=== PATIENT | female | born 1950 | race Caucasian/White ===

== ENCOUNTER → 2020-07-23 10:17 | Outpatient (CLI) | payer MEDICARE, SELFPAY ==
--- NOTE | ~2020-07-23 | DEXA_ITS ---
Bone Density Report Name: Audelia Dunne Age: 70 Sex: Female Ethnicity: White Date of : 1950 Indication: monitoring treatment; height loss; postmenopausal Referring Provider: MORA, STEFANO Study: Bone densitometry was performed. Exam Date: July 23, 2020 Accession number: [id number] Bone Density: Region BMD T-score Z-score Classification AP Spine (L1-L4) 1.003 -0.4 1.6 Normal Femoral Neck (Left) 0.709 -1.3 0.4 Osteopenia Total Hip (Left) 0.787 -1.3 0.1 Osteopenia Femoral Neck (Right) 0.757 -0.8 0.9 Normal Total Hip (Right) 0.770 -1.4 0.0 Osteopenia Total Hip Mean 0.779 -1.4 0.1 Osteopenia World Health Organization criteria for BMD impression classify patients as: Normal (T-score at or above -1.0), Osteopenia (T-score between -1.0 and -2.5), or Osteoporosis (T-score at or below -2.5). 10-year Fracture Risk: FRAX not reported because: Treated for osteoporosis Previous Exams: Region Exam Age BMD T-score BMD Change BMD Change Date g/cm2 vs Baseline vs Previous AP Spine(L1-L4) 07/23/2020 70 1.003 -0.4 -0.055* -0.042* 06/28/2017 67 1.045 0.0 -0.013 0.011 06/23/2015 65 1.034 -0.1 -0.024* -0.027* 05/01/2013 63 1.061 0.1 0.003 0.039* 03/13/2011 60 1.022 -0.2 -0.036* -0.036* 01/20/2008 57 1.058 0.1 Total Hip(Left) 07/23/2020 70 0.787 -1.3 -0.122* -0.069* 06/28/2017 67 0.855 -0.7 -0.053* 0.038* 06/23/2015 65 0.817 -1.0 -0.091* -0.006 05/01/2013 63 0.823 -1.0 -0.085* 0.026 03/13/2011 60 0.797 -1.2 -0.111* -0.111* 01/20/2008 57 0.909 -0.3 Total Hip(Right) 07/23/2020 70 0.770 -1.4 -0.082* -0.076* 06/28/2017 67 0.846 -0.8 -0.007 0.036* 06/23/2015 65 0.810 -1.1 -0.043* -0.021 05/01/2013 63 0.830 -0.9 -0.022 0.024 03/13/2011 60 0.807 -1.1 -0.046* -0.046* 01/20/2008 57 0.852 -0.7 *Denotes significance at 95% confidence level, LSC for AP Spine = 0.022 g/cm2, LSC for Total Hip = 0.027 g/cm2 Clinical Information Provided by Patient: Is being treated for osteoporosis Has used the following medications: HRT (i.e. estrogen/hormone therapy), Vitamin D, Calcium, mtv Patient maximum height was 66 Menopause Age: 52 No regular weight bearing exercise Drinks caffeinated ghislaine
--- NOTE | ~2020-07-23 | MM_ITS ---
EXAMINATION: MM screening garrett BI w ingrid HISTORY: Screening TECHNIQUE: Craniocaudal and mediolateral oblique 3-D tomosynthesis images were obtained and synthetic 2-D images were generated. CAD analysis was submitted and interpreted. COMPARISON: Comparison to multiple prior studies sequentially, with oldest reviewed study dated 04/04. BREAST PARENCHYMAL COMPOSITION: The breasts are heterogeneously dense, which may obscure small masses . FINDINGS: There is no evidence of suspicious mass, calcification, or architectural distortion to sugg est malignancy in either breast. There has been no suspicious interval change. IMPRESSION: 1. No mammographic evidence of malignancy. 2. Recommend routine screening mammography in one year. BI-RADS Category 1: Negative Reviewed, dictated and finalized at location A.
== END ==
PROVIDERS: PCP Internal Medicine; Visit Provider Nurse Practitioner
DX: Z12.31 Encounter for screening mammogram for malignant neoplasm of breast (principal); Z78.0 Asymptomatic menopausal state; M85.88 Other specified disorders of bone density and structure, other site
CPT/HCPCS: 77063; 77067; 77080

== ENCOUNTER → 2021-07-27 10:04 | Outpatient (CLI) | payer MEDICARE, SELFPAY ==
--- NOTE | ~2021-07-27 | MM_ITS ---
EXAMINATION: MM screening garrett BI w ingrid HISTORY: Screening TECHNIQUE: Craniocaudal and mediolateral oblique 3-D tomosynthesis images were obtained and synthetic 2-D images were generated. CAD analysis was submitted and interpreted. COMPARISON: Comparison to multiple prior studies sequentially, with oldest reviewed study dated 04/04. BREAST PARENCHYMAL COMPOSITION: The breasts are heterogenously dense, which may obscure small masses. FINDINGS: There is a new subtle asymmetry medially in the left breast on CC view. The right breast is stable without evidence for malignancy. IMPRESSION: 1. New focal asymmetry medial aspect of the left breast on CC view. 2. Additional mammographic views and possible breast ultrasound are recommended. BI-RADS Category 0: Incomplete: Needs additional imaging evaluation. Reviewed, dictated and finalized at location A. IMPRESSION: 1. New focal asymmetry medial aspect of the left breast on CC view. 2. Additional mammographic views and possible breast ultrasound are recommended . BI-RADS Category 0: Incomplete: Needs additional imaging evaluation.
== END ==
PROVIDERS: PCP Internal Medicine; Visit Provider Nurse Practitioner
DX: Z12.31 Encounter for screening mammogram for malignant neoplasm of breast (principal); R92.8 Other abnormal and inconclusive findings on diagnostic imaging of breast
CPT/HCPCS: 77063; 77067

== ENCOUNTER → 2021-08-24 07:49 | Outpatient (CLI) | payer MEDICARE, SELFPAY ==
--- NOTE | ~2021-08-24 | MMUS_ITS ---
EXAMINATION: MM diagnostic garrett LT w ingrid, US breast LT limited HISTORY: Follow-up left breast asymmetry TECHNIQUE: Additional 3-D tomosynthesis images of the left breast were performed and synthetic 2-D im ages were generated. CAD analysis was submitted and interpreted. High resolution Limited left breast ultrasound was performed. COMPARISON: Comparison to multiple prior studies sequentially, with oldest reviewed study dated 04/06. BREAST PARENCHYMAL COMPOSITION: The breasts are heterogenously dense, which may obscure small masses FINDINGS: MAMMOGRAPHIC FINDINGS: There are no suspicious masses, calcifications or architectural distortion in the left breast to sugg est malignancy. ULTRASOUND: Limited left breast ultrasound: Normal heterogeneous echotexture without focal solid or cystic mass. IMPRESSION: 1. No evidence for malignancy in the left breast. 2. Routine yearly screening mammogram and regular clinical breast examination are recommended. BI-RADS Category 1: Negative Reviewed, dictated and finalized at location A. IMPRESSION: 1. No evidence for malignancy in the left breast. 2. Routine yearly screening mammogram and regular clinical breast examination a re recommended. BI-RADS Category 1: Negative
== END ==
PROVIDERS: Visit Provider Obstetrics & Gynecology Gynecology
DX: R92.8 Other abnormal and inconclusive findings on diagnostic imaging of breast (principal)
CPT/HCPCS: 76642; 77061; 77065; G0279

== ENCOUNTER → 2022-09-21 10:53 | Outpatient (CLI) | payer MEDICARE, SELFPAY ==
--- NOTE | ~2022-09-21 | MM_ITS ---
EXAMINATION: MM screening garrett BI w ingrid HISTORY: Screening mammogram TECHNIQUE: Craniocaudal and mediolateral oblique 3-D tomosynthesis images were obtained and synthetic 2-D images were generated. CAD analysis was submitted and interpreted. COMPARISON: 08/24/2021 diagnostic left mammogram and limited left breast ultrasound 07/28/2021, 07/23/2020, 07/17/2019 bilateral screening mammogram examinations BREAST PARENCHYMAL COMPOSITION: The breasts are heterogeneously dense, which may obscure small masses . FINDINGS: Scattered bilateral benign calcifications. There is no evidence of suspicious mass, calcifi cation, or architectural distortion to suggest malignancy in either breast. There has been no suspici ous interval change. IMPRESSION: 1. No mammographic evidence of malignancy. 2. Recommend routine screening mammography in one year. BI-RADS Category 1: Negative Reviewed, dictated and finalized at location A. 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
--- NOTE | ~2022-09-21 | DEXA_ITS ---
Bone Density Report Name: MAGGIE PRINCE Age: 72 Sex: Female Ethnicity: White Date of : 1950 Indication: osteopenia; monitoring treatment; height loss; postmenopausal Referring Provider: MORA, STEAFNO Study: Bone densitometry was performed. Exam Date: September 21, 2022 Accession number: [id number] Bone Density: Region BMD T-score Z-score Classification AP Spine (L1-L4) 0.998 -0.4 1.7 Normal Femoral Neck (Left) 0.682 -1.5 0.3 Osteopenia Total Hip (Left) 0.765 -1.4 0.1 Osteopenia Femoral Neck (Right) 0.762 -0.8 1.0 Normal Total Hip (Right) 0.761 -1.5 0.0 Osteopenia Total Hip Mean 0.763 -1.5 0.1 Osteopenia World Health Organization criteria for BMD impression classify patients as: Normal (T-score at or above -1.0), Osteopenia (T-score between -1.0 and -2.5), or Osteoporosis (T-score at or below -2.5). 10-year Fracture Risk: FRAX not reported because: Treated for osteoporosis Previous Exams: Region Exam Age BMD T-score BMD Change BMD Change Date g/cm2 vs Baseline vs Previous AP Spine(L1-L4) 09/21/2022 72 0.998 -0.4 -0.060* -0.005 07/23/2020 70 1.003 -0.4 -0.055* -0.042* 06/28/2017 67 1.045 0.0 -0.013 0.011 06/23/2015 65 1.034 -0.1 -0.024* -0.027* 05/01/2013 63 1.061 0.1 0.003 0.039* 03/13/2011 60 1.022 -0.2 -0.036* -0.036* 01/20/2008 57 1.058 0.1 Total Hip(Left) 09/21/2022 72 0.765 -1.4 -0.143* -0.021 07/23/2020 70 0.787 -1.3 -0.122* -0.069* 06/28/2017 67 0.855 -0.7 -0.053* 0.038* 06/23/2015 65 0.817 -1.0 -0.091* -0.006 05/01/2013 63 0.823 -1.0 -0.085* 0.026 03/13/2011 60 0.797 -1.2 -0.111* -0.111* 01/20/2008 57 0.909 -0.3 Total Hip(Right) 09/21/2022 72 0.761 -1.5 -0.091* -0.009 07/23/2020 70 0.770 -1.4 -0.082* -0.076* 06/28/2017 67 0.846 -0.8 -0.007 0.036* 06/23/2015 65 0.810 -1.1 -0.043* -0.021 05/01/2013 63 0.830 -0.9 -0.022 0.024 03/13/2011 60 0.807 -1.1 -0.046* -0.046* 01/20/2008 57 0.852 -0.7 *Denotes significance at 95% confidence level, LSC for AP Spine = 0.022 g/cm2, LSC for Total Hip = 0.027 g/cm2 Clinical Information Provided by Patient: Is being treated for osteoporosis H
== END ==
PROVIDERS: PCP Internal Medicine; Visit Provider Nurse Practitioner
DX: Z12.31 Encounter for screening mammogram for malignant neoplasm of breast (principal); M85.88 Other specified disorders of bone density and structure, other site; M85.852 Other specified disorders of bone density and structure, left thigh; M85.851 Other specified disorders of bone density and structure, right thigh
CPT/HCPCS: 77063; 77067; 77080

== ENCOUNTER 2023-11-29 09:20 | Outpatient (CLI) | payer MEDICARE, SELFPAY ==
[2023-11-29 12:50] LABS: Basophils Percent Auto 0.9 % (0.2-1.2); Eosinophils Absolute Auto 0.1 K/mm3 (0-0.3); Eosinophils Percent Auto 2.8 % (0-4.4); Hematocrit 36.8 % (37.0-47.0); Hemoglobin 11.5 g/dL (12.0-15.0); Immature Granulocyte Absolute 0.01 K/mm3 (0.00-0.031); Immature Granulocyte Percent A 0.2 % (0-0.5); Lymphocytes Absolute Auto 1.59 K/mm3 (0.9-3.2); Lymphocytes Percent Auto 34.6 % (18.3-44.2); Mean Corpuscular HGB Conc 31.3 g/dl (32-36); Mean Corpuscular Hemoglobin 29.7 pg (26-34); Mean Corpuscular Volume 95.1 fl (80-100); Monocytes Absolute Auto 0.4 K/mm3 (0.1-0.6); Monocytes Percent Auto 8.9 % (2.6-8.5); Neutrophils Absolute Auto 2.4 K/mm3 (1.3-6.7); Neutrophils Percent Auto 52.6 % (45.5-73.1); Platelet Count Result 205 k/mm3 (150-375); Red Blood Count 3.87 M/mm3 (4.2-5.4); Red Cell Distribution Width 12.7 % (11.5-14.5); White Blood Count 4.6 K/mm3 (4.5-10.0)
[2023-11-29 13:30] LABS: Alanine Aminotransferase 16 U/L (6-35); Albumin Level 4.1 g/dL (3.5-5.1); Alkaline Phosphatase 48 U/L (38-126); Anion Gap 5 mmol/L (8-16); Aspartate Amino Transferase 47 U/L (14-36); Bilirubin,Total 1.1 mg/dL (0.2-1.3); Blood Urea Nitrogen 19 mg/dL (7-17); Calcium 9.1 mg/dL (8.4-10.2); Carbon Dioxide 30 mmol/L (22-30); Chloride 104 mmol/L (98-107); Cholesterol 172 mg/dL (0-200); Estimated Glomerular Filt Rate > 60; Glucose 88 mg/dL (65-110); HDL Direct 101 mg/dL; Potassium 4.2 mmol/L (3.4-5.0); Sodium 139 mmol/L (137-145); Triglycerides 38 mg/dL (<150)
[2023-11-29 13:35] LABS: LDL Cholesterol Direct 52 mg/dL
[2023-11-29 17:04] LABS: Vitamin D 25 Hydroxy 60.2 ng/mL
[2023-11-29 17:34] LABS: Hepatitis C Virus Antibody Negative (Negative)
== END 2023-11-29 09:21 | disposition home or self-care (01) ==
PROVIDERS: Visit Provider Family Medicine
DX: E78.2 Mixed hyperlipidemia (principal); I10 Essential (primary) hypertension; M85.80 Other specified disorders of bone density and structure, unspecified site; Z11.59 Encounter for screening for other viral diseases
CPT/HCPCS: 36415; 80053; 80061; 82306; 85025; 86803

== ENCOUNTER → 2023-11-29 13:41 | Outpatient (CLI) | payer MEDICARE, SELFPAY ==
--- NOTE | ~2023-11-29 | MM_ITS ---
EXAMINATION: MM screening garrett BI w ingrid HISTORY: Screening TECHNIQUE: Craniocaudal and mediolateral oblique 3-D tomosynthesis images were obtained and synthetic 2-D images were generated. CAD analysis was submitted and interpreted. COMPARISON: Comparison to multiple prior studies sequentially, with oldest reviewed study dated 05/2018. BREAST PARENCHYMAL COMPOSITION: There are scattered areas of fibroglandular density. FINDINGS: There is no evidence of suspicious mass, calcification, or architectural distortion to sugg est malignancy in either breast. There has been no suspicious interval change. IMPRESSION: 1. No mammographic evidence of malignancy. 2. Recommend routine screening mammography in one year. BI-RADS Category 1: Negative Reviewed, dictated and finalized at location A. 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
== END ==
PROVIDERS: PCP Family Medicine; Visit Provider Nurse Practitioner
DX: Z12.31 Encounter for screening mammogram for malignant neoplasm of breast (principal)
CPT/HCPCS: 77063; 77067

== ENCOUNTER 2024-01-02 09:44 | Outpatient (CLI) | payer MEDICARE, SELFPAY ==
[2024-01-02 13:38] LABS: Basophils Percent Auto 0.6 % (0.2-1.2); Eosinophils Absolute Auto 0.1 K/mm3 (0-0.3); Eosinophils Percent Auto 1.7 % (0-4.4); Hematocrit 36.1 % (37.0-47.0); Hemoglobin 11.1 g/dL (12.0-15.0); Immature Granulocyte Absolute 0.01 K/mm3 (0.00-0.031); Immature Granulocyte Percent A 0.2 % (0-0.5); Lymphocytes Absolute Auto 1.44 K/mm3 (0.9-3.2); Lymphocytes Percent Auto 26.9 % (18.3-44.2); Mean Corpuscular HGB Conc 30.7 g/dl (32-36); Mean Corpuscular Hemoglobin 29.8 pg (26-34); Mean Corpuscular Volume 96.8 fl (80-100); Mean Platelet Volume 10.3 fl (7.4-10.4); Monocytes Absolute Auto 0.5 K/mm3 (0.1-0.6); Monocytes Percent Auto 9.7 % (2.6-8.5); Neutrophils Absolute Auto 3.3 K/mm3 (1.3-6.7); Neutrophils Percent Auto 60.9 % (45.5-73.1); Platelet Count Result 205 k/mm3 (150-375); Red Blood Count 3.73 M/mm3 (4.2-5.4); Reticulocyte Percent 0.68 % (0.7-4.3); Reticulocytes Absolute 0.03 M/mm3 (0.02-0.1); White Blood Count 5.4 K/mm3 (4.5-10.0)
[2024-01-02 14:26] LABS: Iron 75 ug/dL (37-170)
[2024-01-02 14:36] LABS: Percent Iron Saturation 28 % (20-50)
== END 2024-01-02 09:45 | disposition home or self-care (01) ==
LOC: ANHGOSHLAB 09:46
PROVIDERS: PCP Family Medicine; Visit Provider Family Medicine
DX: D64.9 Anemia, unspecified (principal)
CPT/HCPCS: 36415; 82607; 82728; 83540; 83550; 85025; 85046

== ENCOUNTER 2024-03-31 11:10 | Outpatient (CLI) | payer MEDICARE, SELFPAY ==
[2024-03-31 13:25] LABS: Basophils Percent Auto 0.6 % (0.2-1.2); Eosinophils Absolute Auto 0.1 K/mm3 (0-0.3); Eosinophils Percent Auto 1.5 % (0-4.4); Hematocrit 34.2 % (37.0-47.0); Hemoglobin 10.8 g/dL (12.0-15.0); Immature Granulocyte Absolute 0.01 K/mm3 (0.00-0.031); Immature Granulocyte Percent A 0.2 % (0-0.5); Immature Reticulocyte Fraction 7.5 % (3.0-15.9); Lymphocytes Absolute Auto 1.24 K/mm3 (0.9-3.2); Lymphocytes Percent Auto 22.8 % (18.3-44.2); Mean Corpuscular HGB Conc 31.6 g/dl (32-36); Mean Corpuscular Hemoglobin 30.3 pg (26-34); Mean Corpuscular Volume 95.8 fl (80-100); Monocytes Absolute Auto 0.5 K/mm3 (0.1-0.6); Monocytes Percent Auto 8.3 % (2.6-8.5); Neutrophils Absolute Auto 3.6 K/mm3 (1.3-6.7); Neutrophils Percent Auto 66.6 % (45.5-73.1); Platelet Count Result 197 k/mm3 (150-375); Red Blood Count 3.57 M/mm3 (4.2-5.4); Red Cell Distribution Width 12.7 % (11.5-14.5); Reticulocyte Hemoglobin Conten 33.4 pg (28.2-36.6); Reticulocyte Percent 0.71 % (0.7-4.3); Reticulocytes Absolute 0.03 10^6/uL (0.02-0.10); White Blood Count 5.4 K/mm3 (4.5-10.0)
[2024-03-31 13:33] LABS: Alanine Aminotransferase 16 U/L (6-35); Albumin Level 4.2 g/dL (3.5-5.1); Alkaline Phosphatase 41 U/L (38-126); Anion Gap 6 mmol/L (4-12); Aspartate Amino Transferase 31 U/L (14-36); Bilirubin,Total 0.9 mg/dL (0.2-1.3); Blood Urea Nitrogen 21 mg/dL (7-17); Calcium 9.3 mg/dL (8.4-10.2); Carbon Dioxide 28 mmol/L (22-30); Chloride 107 mmol/L (98-107); Estimated Glomerular Filt Rate > 60; Glucose 124 mg/dL (65-110); Sodium 141 mmol/L (137-145)
[2024-04-02 09:05] LABS: Hemoglobin A1C 5.4 % (<5.7)
== END 2024-03-31 11:11 | disposition home or self-care (01) ==
LOC: ANHGOSHLAB 11:11
PROVIDERS: PCP Family Medicine; Visit Provider Family Medicine
DX: D64.9 Anemia, unspecified (principal); R73.9 Hyperglycemia, unspecified
CPT/HCPCS: 36415; 80053; 82607; 82728; 83036; 85025; 85046

== ENCOUNTER 2024-04-28 07:14 | Day surgery (SDC) | payer MEDICARE, SELFPAY ==
[2024-04-04 09:02] VITALS: BMI 23.4
[2024-04-18 10:58] VITALS: BMI 23.3
[2024-04-28 08:05] VITALS: BP 141/82; PULSE 62; RESP 16; TEMP 36.6; O2SAT 100
[2024-04-28] MEDS: LACTATED RINGERS 1,000 ML 150 ML IV CONT (08:09)
--- NOTE | 2024-04-28 08:45 | PM.HPGS ---
History of Present Illness History of Present Illness Consent: Risks, benefits, and alternatives have been discussed and questions answered. Patient agrees to proceed with procedure. Chief complaint: Anemia Narrative: Audelia Dunne is a 74 year old female who was recently found to be anemic with a hemoglobin of 10.8. Review of Systems Review of Systems: All systems reviewed & are unremarkable except as noted in HPI and below PMFSH Past Medical History Medical History Cataract Cervicalgia Hormone replacement therapy HTN (hypertension) Hypolipidemia Osteopenia Surgical History Surgical History Hx of tonsillectomy Social History Social History Smoking status: Never smoker Alcohol intake: never Substance use: never Substance use type: does not use Do You Feel Safe in your Home?: Yes Living arrangements: with family Spiritual care concerns: No Meds Home Medications and Allergies Home Medications Medication Instructions Recorded Confirmed Type calcium carbonate 600 mg PO DAILY 11/13/23 04/28/24 History cholecalciferol (vitamin D3) 25 25 mcg PO DAILY 11/13/23 04/28/24 History mcg (1,000 unit) chewable tablet estradiol 0.5 mg tablet 0.5 mg PO DAILY 11/13/23 04/28/24 History progesterone micronized 100 mg 100 mg PO DAILY 11/13/23 04/28/24 History capsule rosuvastatin 10 mg tablet 10 mg PO DAILY #90 tabs 03/10/24 04/28/24 Rx swgpzgya-wst-zanzx ac 400 1 tablet PO DAILY 03/13/24 04/28/24 History mcg-calcium carb 500 mg-vit K1 20 mcg tablet ferrous gluconate 240 mg (27 mg 240 mg PO DAILY #90 tabs 04/02/24 04/28/24 Rx iron) tablet lisinopril 20 mg tablet 20 mg PO DAILY #90 tabs 04/02/24 04/28/24 Rx Allergies Allergy/AdvReac Type Severity Reaction Status Date / Time hydrocodone [From Vicoprofen] AdvReac Intermediate Dizziness Verified 04/28/24 08:04 ibuprofen [From Vicoprofen] AdvReac Intermediate Dizziness Verified 04/28/24 08:04 sulfamethoxazole AdvReac Rash Verified 04/28/24 08:04 [From ] trimethoprim [From ] AdvReac Rash Verified 04/28/24 08:04 Vital Signs Vital Signs - 24 hr 04/28/24 08:05 Temperature 36.6 C Pulse Rate 62 Respiratory Rate 16 Blood Pressure 141/82 H Pulse Oximetry 100 Oxygen Delivery Room Air Exam Resp: Auscultation: clear to auscultation bilaterally Cardio: Rate: regular rate Rhythm: regular rhythm GI: GI Palp: Yes Soft to palpation and No Tenderness to palpation present (GI) Assessment and Plan Assessment and plan (1) Anemia: Code(s): D64.9 - Anemia, unspecified Status: Acute Assessment and Plan: Colonoscopy with possible biopsy or polypectomy or cautery or injection of substances.
--- NOTE | 2024-04-28 08:46 | P.PNAN_ITS ---
Anes - Initial Pre Proc Eval Procedure: Operation Date: 04/28/24 09:30 Proposed Procedures p Diagnostic Colonoscopy - Tray Gomes MD Date/Time: 04/28/24 08:46 Surgeon: Tray Gomes MD Pre Op Diagnosis: Anemia Patient Data Age: 74 Gender: F Height: 1.65 m Weight: 62.4 kg Last Vital Signs Temp 36.6 C 04/28/24 08:05 Pulse 62 04/28/24 08:05 Resp 16 04/28/24 08:05 BP 141/82 H 04/28/24 08:05 Pulse Ox 100 04/28/24 08:05 O2 Del Method Room Air 04/28/24 08:05 Allergies Allergy/AdvReac Type Severity Reaction Status Date / Time hydrocodone [From Vicoprofen] AdvReac Intermediate Dizziness Verified 04/28/24 08:04 ibuprofen [From Vicoprofen] AdvReac Intermediate Dizziness Verified 04/28/24 08:04 sulfamethoxazole AdvReac Rash Verified 04/28/24 08:04 [From Septra] trimethoprim [From Septra] AdvReac Rash Verified 04/28/24 08:04 Home Medications Medication Instructions Recorded Confirmed Type calcium carbonate 600 mg PO DAILY 11/13/23 04/28/24 History cholecalciferol (vitamin D3) 25 25 mcg PO DAILY 11/13/23 04/28/24 History mcg (1,000 unit) chewable tablet estradiol 0.5 mg tablet 0.5 mg PO DAILY 11/13/23 04/28/24 History progesterone micronized 100 mg 100 mg PO DAILY 11/13/23 04/28/24 History capsule rosuvastatin 10 mg tablet 10 mg PO DAILY #90 tabs 03/10/24 04/28/24 Rx gnhsqnvw-pzu-mnaup ac 400 1 tablet PO DAILY 03/13/24 04/28/24 History mcg-calcium carb 500 mg-vit K1 20 mcg tablet ferrous gluconate 240 mg (27 mg 240 mg PO DAILY #90 tabs 04/02/24 04/28/24 Rx iron) tablet lisinopril 20 mg tablet 20 mg PO DAILY #90 tabs 04/02/24 04/28/24 Rx Patient hx anesthesia problems: none Family hx anesthesia problems: none Results Review: All pre-operative results and documents have been reviewed as part of the pre- operative evaluation. PMFSH Past Medical History Medical History Cataract Cervicalgia Hormone replacement therapy HTN (hypertension) Hypolipidemia Osteopenia Surgical History Surgical History (Updated 04/28/24 @ 08:46 by Frank Del Real MD) Hx of tonsillectomy Social History Social History Smoking status: Never smoker Alcohol intake: never Substance use: never Substance use type: does not use Do You Feel Safe in your Home?: Yes Living arrangements: with family Spiritual care concerns: No Anes - Eval Final PreProcedure Day of Procedure 04/28/24 08:46 Patient weight: normal Heart: regular rate and rhythm Lungs: clear to auscultation Airway: Mallampati scale class II Neurological: alert and oriented Last oral intake: >/= 8 hours ASA classification: II Anesthetic plan: proceed Results Review: All pre-operative results and documents have been reviewed as part of the pre- operative evaluation. Informed Consent: The patient's anesthetic plan and its attendant risks and benefits were discussed with the patient/family/POA. Questions were solicited and answers provided to the satisfaction of the patient/family/POA.
[2024-04-28 09:49] VITALS: BP 105/69; PULSE 70; RESP 16; O2SAT 100
[2024-04-28 09:59] VITALS: BP 114/64; PULSE 69; RESP 16; O2SAT 99
--- NOTE | 2024-04-28 10:08 | WPDANESPN ---
Anes - Prog Note Post-Op Date/Time: 04/28/24 10:08 Cardiovascular status: normal Respiratory status: normal Airway patency: baseline Mental status: baseline Post-Op hydration status: normal Vital Signs: Last Vital Signs Temp 36.6 C 04/28/24 08:05 Pulse 69 04/28/24 09:59 Resp 16 04/28/24 09:59 BP 114/64 04/28/24 09:59 Pulse Ox 99 04/28/24 09:59 O2 Del Method Room Air 04/28/24 09:59 Pain Score (VAS): 0/10 I/O: Intake & Output 04/27/24 04/28/24 04/28/24 23:59 07:59 15:59 Intake Total 750 Balance 750 Patient Feedback: Patient satisfied with anesthetic care.
[2024-04-28 10:09] VITALS: BP 125/66; PULSE 62; RESP 16; O2SAT 100
== END 2024-04-28 10:12 | disposition home or self-care (01) ==
PROVIDERS: PCP Family Medicine; Visit Provider Internal Medicine Gastroenterology
PROC: 0DJD8ZZ Inspection of Lower Intestinal Tract, Via Natural or Artificial Opening Endoscopic (ICD-10-PCS; CPT 45378; principal; 2024-04-28 09:30)
DX: D64.9 Anemia, unspecified (principal); K57.30 Diverticulosis of large intestine without perforation or abscess without bleeding; K64.8 Other hemorrhoids
CPT/HCPCS: 45378

== ENCOUNTER 2024-06-02 13:52 | Outpatient (CLI) | payer MEDICARE, SELFPAY ==
[2024-06-02 18:51] LABS: Basophils Percent Auto 0.6 % (0.2-1.2); Eosinophils Absolute Auto 0.1 K/mm3 (0-0.3); Eosinophils Percent Auto 1.1 % (0-4.4); Hematocrit 35.7 % (37.0-47.0); Immature Granulocyte Absolute 0.02 K/mm3 (0.00-0.031); Immature Granulocyte Percent A 0.3 % (0-0.5); Lymphocytes Absolute Auto 1.47 K/mm3 (0.9-3.2); Lymphocytes Percent Auto 23.2 % (18.3-44.2); Mean Corpuscular HGB Conc 30.8 g/dl (32-36); Mean Corpuscular Hemoglobin 29.6 pg (26-34); Mean Corpuscular Volume 96.2 fl (80-100); Mean Platelet Volume 9.8 fl (7.4-10.4); Monocytes Absolute Auto 0.4 K/mm3 (0.1-0.6); Neutrophils Absolute Auto 4.4 K/mm3 (1.3-6.7); Neutrophils Percent Auto 68.8 % (45.5-73.1); Platelet Count Result 209 k/mm3 (150-375); Red Blood Count 3.71 M/mm3 (4.2-5.4); Red Cell Distribution Width 12.9 % (11.5-14.5); White Blood Count 6.3 K/mm3 (4.5-10.0)
== END 2024-06-02 13:53 | disposition home or self-care (01) ==
LOC: ANHGOSHLAB 13:54
PROVIDERS: PCP Family Medicine; Visit Provider Family Medicine
DX: D64.9 Anemia, unspecified (principal)
CPT/HCPCS: 36415; 82728; 85025

== ENCOUNTER 2024-08-08 17:57 | Emergency (ER) | payer MEDICARE, SELFPAY ==
[2024-08-08 18:12] VITALS: BP 174/82; BP 186/77; PULSE 70; RESP 20; TEMP 37.1; O2SAT 100
--- NOTE | 2024-08-08 18:14 | ED.SKABFB ---
HPI - Skin/Abscess/Foreign Bdy General Chief complaint: Wound/Laceration Stated complaint: Left Cheek Skin Irritation Time Seen by Provider: 08/08/24 18:10 Source: patient Mode of arrival: ambulatory Limitations: no limitations History of Present Illness HPI narrative: Audelia is a 74-year-old female patient presenting to the clinic today with complaints redness to the left cheek and forehead. He reports that this started 3 days ago after working out in her garden. She is unaware if she was bitten by an insect, came in contact with poison reva, or she may have shingles. States that the area is somewhat tender and itchy. Denies any fever or chills. Denies any changes in vision or any eye pain. Related Data Home Medications Medication Instructions Recorded Confirmed calcium carbonate 600 mg PO DAILY 11/13/23 07/24/24 cholecalciferol (vitamin D3) 25 25 mcg PO DAILY 11/13/23 07/24/24 mcg (1,000 unit) chewable tablet estradiol 0.5 mg tablet 0.5 mg PO DAILY 11/13/23 07/24/24 progesterone micronized 100 mg 100 mg PO DAILY 11/13/23 07/24/24 capsule iarynpak-btt-nidcc ac 400 1 tablet PO DAILY 03/13/24 07/24/24 mcg-calcium carb 500 mg-vit K1 20 mcg tablet Allergies Allergy/AdvReac Type Severity Reaction Status Date / Time hydrocodone [From Vicoprofen] AdvReac Intermediate Dizziness Verified 08/08/24 18:20 ibuprofen [From Vicoprofen] AdvReac Intermediate Dizziness Verified 08/08/24 18:20 sulfamethoxazole AdvReac Rash Verified 08/08/24 18:20 [From Septra] trimethoprim [From Septra] AdvReac Rash Verified 08/08/24 18:20 Review of Systems Review of Systems: Pertinent positives per HPI. Patient denies any fever, chills, rash, headache, visual changes, dizziness, cough, runny nose, sore throat, shortness of breath, chest pain, palpitations, nausea, vomiting, diarrhea, constipation, abdominal pain, or any urinary issues. PMFSH Past Medical History Medical History Cataract Cervicalgia Hormone replacement therapy HTN (hypertension) Hypolipidemia Osteopenia Surgical History Surgical History Hx of tonsillectomy Social History Social History Smoking status: Never smoker Alcohol intake: never Substance use: never Substance use type: does not use Do You Feel Safe in your Home?: Yes Living arrangements: with family Spiritual care concerns: No Comments At the time of my signature, I reviewed and agree with the nursing past medical, surgical, social, and family history. There is no relevant family history pertinent to the patient complaint. Exam Narrative: General: Well-developed, well nourished, in no apparent distress Head: Normocephalic, atraumatic. Cardio: Regular rate and rhythm, s1 and s2 normal, no murmur appreciated. Resp: Clear to auscultation bilaterally, no rhonchi, rales, wheezing or rubs. Integumentary: [place], warm, and dry, redness and swelling measuring 1.5 cm x 1 cm with mild induration and tenderness to palpation to the left upper cheek/orbit, area is itchy as well. Very mild blistering noted to the rash on the forehead. Course Course Emergency Course: Portions of this record may have been created with voice recognition software. Level of Care: Express Care Visit Vital Signs Vital signs: Vital signs reviewed MDM - Skin/Abscess/Foreign Bdy MDM Narrative Medical decision making narrative: At the time of visit patient is resting comfortably on the exam table. Patient appears to be nontoxic. Plan: I suspect patient has dermatitis with localized allergic reaction but cannot rule out early periorbital cellulitis/secondary infection. Will place patient on cephalexin and triamcinolone cream. Also discussed use of Benadryl. Supportive measures were discussed with the patient and they voiced un
== END 2024-08-08 18:22 | disposition home or self-care (01) ==
PROVIDERS: Emergency Provider Nurse Practitioner Family; PCP Family Medicine
DX: H05.222 Edema of left orbit (principal); L30.9 Dermatitis, unspecified; I10 Essential (primary) hypertension; M85.80 Other specified disorders of bone density and structure, unspecified site
CPT/HCPCS: 99213; G0463

== ENCOUNTER 2024-10-06 08:00 | Outpatient (CLI) | payer MEDICARE, SELFPAY ==
[2024-10-06 11:19] LABS: Basophils Percent Auto 0.7 % (0.2-1.2); Eosinophils Absolute Auto 0.2 K/mm3 (0-0.3); Eosinophils Percent Auto 3.5 % (0-4.4); Hematocrit 34.2 % (37.0-47.0); Hemoglobin 10.8 g/dL (12.0-15.0); Immature Granulocyte Absolute 0.01 K/mm3 (0.00-0.031); Immature Granulocyte Percent A 0.2 % (0-0.5); Lymphocytes Absolute Auto 1.35 K/mm3 (0.9-3.2); Lymphocytes Percent Auto 29.7 % (18.3-44.2); Mean Corpuscular HGB Conc 31.6 g/dl (32-36); Mean Corpuscular Hemoglobin 30.2 pg (26-34); Mean Corpuscular Volume 95.5 fl (80-100); Monocytes Absolute Auto 0.5 K/mm3 (0.1-0.6); Monocytes Percent Auto 10.1 % (2.6-8.5); Neutrophils Absolute Auto 2.5 K/mm3 (1.3-6.7); Neutrophils Percent Auto 55.8 % (45.5-73.1); Platelet Count Result 186 k/mm3 (150-375); Red Blood Count 3.58 M/mm3 (4.2-5.4); White Blood Count 4.6 K/mm3 (4.5-10.0)
[2024-10-06 11:38] LABS: Alanine Aminotransferase 16 U/L (6-35); Alkaline Phosphatase 42 U/L (38-126); Anion Gap 2 mmol/L (4-12); Aspartate Amino Transferase 35 U/L (14-36); Bilirubin,Total 0.9 mg/dL (0.2-1.3); Blood Urea Nitrogen 19 mg/dL (7-17); Calcium 9.2 mg/dL (8.4-10.2); Carbon Dioxide 31 mmol/L (22-30); Chloride 105 mmol/L (98-107); Cholesterol 165 mg/dL (0-200); Estimated Glomerular Filt Rate > 60; Glucose 88 mg/dL (65-110); HDL Direct 101 mg/dL; Potassium 4.2 mmol/L (3.4-5.0); Sodium 138 mmol/L (137-145); Triglycerides 31 mg/dL (<150)
[2024-10-06 11:50] LABS: LDL Cholesterol Direct 43 mg/dL
[2024-10-06 19:28] LABS: Vitamin D 25 Hydroxy 53.4 ng/mL
== END 2024-10-06 08:01 | disposition home or self-care (01) ==
LOC: ANHGOSHLAB 08:01
PROVIDERS: PCP Family Medicine; Visit Provider Family Medicine
DX: E78.2 Mixed hyperlipidemia (principal); D64.9 Anemia, unspecified; M85.88 Other specified disorders of bone density and structure, other site
CPT/HCPCS: 36415; 80053; 80061; 82306; 82728; 85025

== ENCOUNTER 2024-12-03 10:21 | Outpatient (CLI) | payer MEDICARE, SELFPAY ==
--- NOTE | ~2024-12-03 | DEXA_ITS ---
Bone Density Report Name: MAGGIE PRINCE Age: 74 Sex: Female Ethnicity: White Date of : 1950 Indication: postmenopausal; screening for osteoporosis; Referring Provider: MORA, STEFANO Study: Bone densitometry was performed. Exam Date: December 03, 2024 Accession number: [id number] Bone Density: Region BMD T-score Z-score Classification AP Spine(L1-L4) 0.990 -0.5 1.7 Normal Femoral Neck (Left) 0.614 -2.1 -0.2 Osteopenia Total Hip (Left) 0.787 -1.3 0.4 Osteopenia Femoral Neck (Right) 0.632 -2.0 0.0 Osteopenia Total Hip (Right) 0.800 -1.2 0.5 Osteopenia Total Hip Mean 0.793 -1.3 0.5 Osteopenia World Health Organization criteria for BMD impression classify patients as: Normal (T-score at or above -1.0), Osteopenia (T-score between -1.0 and -2.5), or Osteoporosis (T-score at or below -2.5). 10-year Fracture Risk(1): Major Osteoporotic Fracture 13% Hip Fracture 2.9% Reported Risk Factors: [place] (), Neck BMD=0.614, BMI=25.6 (1) FRAX(R) Version 3.08. Fracture probability calculated for an untreated patient. Fracture probability may be lower if the patient has received treatment. Clinical Information Provided by Patient: Menopause Age: 52 Impression: The patient has low bone mass, based on the Left Femoral Neck T-score. The patient has an estimated ten-year risk of hip fracture of 2.9% and an estimated ten-year risk of major fracture of 13%, based on the WHO FRAX algorithm. Discussion: BONE DENSITY IS LOW AT ONE OR MORE SKELETAL SITES. This patient's lowest T-score is low at one or more skeletal sites. It meets the World Health Organization's (WHO) criteria for ?low bone mass? (T-score between -1.0 and -2.5). The patient's 10-year risk of fracture as calculated by FRAX is less than the threshold where pharmacological therapy is recommended by the National Osteoporosis Foundation (NOF). However, all treatment decisions require clinical judgment and consideration of individual patient factors, including patient preferences, comorbidities, previous drug use, risk factors not captured in the FRAX model (e.g., frailty, falls, vitamin D deficiency, increased bone turnover, interval significant decline in bone density) and possible under or overestimation of fracture risk by FRAX. The patient should follow a healthful lifestyle (good nutrition with adequate calcium and vitamin D, and appropriate weight-bearing exercise). Follow-Up: Consider repeating this study in 2 to 3 years to reassess this patient's status, or sooner if there is some new clinical indication. Reported by: LEI on 12/03/2024 11:01:00 AM. Reviewed, dictated and finalized at location [facility]
--- OUTSIDE RECORDS SUMMARY | 2024-12-04 23:17 | XMS_ITS | Data Portability ---
Author Organization [place] - [address], Main Office Address [address] [place] [address] Assessment Encounter Date Assessment Date Assessment LastModified by Organization Details LastModified Time 02/08/2023 02/08/2023 Blood work ordered continue current therapy hypertension low vitamin-D level dyslipidemia osteoarthritis and been discussed follow-up with me in 6 months [email or web address] Not available 02/11/2023 11:35:40 06/19/2023 06/19/2023 Continue current therapy and follow-up in 4 months [email or web address] Not available 07/01/2023 22:00:17 09/13/2023 09/13/2023 This was not an office visit. It was erroneously put in his 1. Patient just came in to talk to me and thanked me for the care I have provided to her over the past years. She and her are switching care so that all other physicians are in 1 group. [email or web address] Not available 11/09/2023 12:57:08 Plan of Treatment Reminders Order Date Submit Date Provider Last Modified By Organization Details Last Modified Time Details Appointments None recorded. Lab vitamin D, 25-hydrox y, total, serum 023 023 [email or web address] Not available 3 10:52:27 CBC w/ auto diff 023 023 TYSON Not available 3 12:40:21 lipid panel, serum 023 023 TYSON Not available 3 12:47:28 CMP, serum or plasma 023 023 TYSON Not available 3 12:47:37 Referral None recorded. Procedures None recorded. Surgeries None recorded. Imaging None recorded. Medication Orders None recorded. Patient TargetsNo targets recorded. Patient InstructionsNo instructions recorded. Reason for Referral None Reported. Results Created Date Observation Date Name Description Value Unit Range Abnormal Flag Note LastModifiedBy Organization Detail LastModifiedTime 01/19/20 22 01/18/2022 LIPID PANEL cholesterol 155 mg/dL 140-19 9 [facility] ARLEEN NSUS RECOM MENDA TION FOR AJIT STERO L: ADULT CHILD LOW RISK: <200 <170 BORDE RLINE : <200- 239 ----- HIGH RISK: >240 >200 Not Available [facility] (Lab) [address] [place], [address], 01/18/2022 13:48:35 01/19/20 22 01/18/2022 LIPID PANEL triglyceride s 34 mg/dL 0-150 NIH ARLEEN NSUS REPOR T RECOM MENDA TION FOR TRIGL YCERI ALEX: ADULT CHILD LOW RISK: <150 ----- BODER LINE: 150-1 99 ----- HIGH RISK: >200 ----- Not Available [facility] (Lab) [address] [place], [address], 01/18/2022 13:48:35 01/19/20 22 01/18/2022 LIPID PANEL HDL cholesterol 100 mg/dL 40- Not Available [facility] (Lab) [address] [place], [address], 01/18/2022 13:48:35 01/19/20 22 01/18/2022 LIPID PANEL LDL cholesterol, calculated 48 mg/dL 0-130 NIH ARLEEN NSUS REPOR T RECOM MENDA TIONS FOR LDL: ADULT CHILD LOW RISK <130 <110 (OPTI MAL LDL) <100 ----- BORDE RLINE : 130-1 59 ----- HIGH RISK: >160 >130 A TRIGL YCERI DE RESUL T >400 INVAL IDATE S THE CALCU LATIO N FOR LDL FRACT IONAT ION - THE LDL RESUL T WILL NOT BE REPOR CJ. Not Available [facility] (Lab) [address] [place], [address], 01/18/2022 13:48:35 01/19/20 22 01/18/2022 COMPR EHENS JESUSITA METAB OLIC PANEL carbon dioxide 31 mmol/ L 22-30 high Not Available [facility] (Lab) [address] [place], [address], 01/18/2022 13:48:33 01/19/20 22 01/18/2022 COMPR EHENS JESUSITA METAB OLIC PANEL sodium 137 mmol/ L 137-14 5 Not Available [facility] (Lab) [address] [place], [address], 01/18/2022 13:48:33 01/19/20 22 01/18/2022 COMPR EHENS JESUSITA METAB OLIC PANEL potassium 4.5 mmol/ L 3.5-5. 1 Not Available [facility] (Lab) [address] [place], [address], 01/18/2022 13:48:33 01/19/20 22 01/18/2022 COMPR EHENS JESUSITA METAB OLIC PANEL chloride 105 mmol/ L 98-107 Not Available [facility] (Lab) [address] [place], [address], 01/18/2022 13:48:33 01/19/20 22 01/18/2022 COMPR EHENS JESUSITA METAB OLIC PANEL agap 5.5 mmol/ L 14-22 low Not Available [facility] (Lab) [address] [place], [address], 01/18/2022 13:48:33 01/19/20 22 01/18/2022 COMPR EHENS JESUSITA METAB OLIC PANEL glucose 90 mg/dL 70-99 Not Available [facility] (Lab) [address] [place], [address], 01/18/2022 13:48:33 01/19/20 22 01/18/2022 COMPR EHENS JESUSITA METAB OLIC PANEL BUN 16 mg/dL 8-19 Not Available [facility] (Lab) [address] [place], [address], 01/18/2022 13:48:33 01/19/20 22 01/18/2022 COMPR EHENS JESUSITA METAB OLIC PANEL creatinine 0.77 mg/dL 0.66-1 .25 Not Available [facility] (Lab) [address] [place], [address], 01/18/2022 13:48:33 01/19/20 22 01/18/2022 COMPR EHENS JESUSITA METAB OLIC PANEL GFR >60 Refer ence Range : [place] GFR Healt hy Adult : >60 mL/mi n/1.7 3 m2 Chron ic Kidne y Disea se: 15-60 mL/mi n/1.7 3 m2 Kidne y Failu re: <15/m L/min /1.73 m2 www.n iddk. nih.g ov The MDRD study equat ion has not been valid ated in child ayad <18 years of age; pregn ant women ; the elder ly >85 years of age; or in some racia l or ethni c subgr oups, such as Hisnh nics. Outsi de the valid ated giovany eters , estim ated GFR is less accur ate, requi ring clini sanjiv judgm ent on a case- by-ca se basis . Clini sanjiv inter preta tion for other races and ages must be made by the clini berenice. The MDRD study equat ion has not been valid ated for the evalu ation of serum creat inine relat ed to nutri jamey l statu s or medic ation usage . For perso ns <18 years of age, a pedia tric GFR calcu lator is avail able on the [facility] websi te: https ://elvis buckner.vladimir oro/pr mansooress rigoal s/kdo qi/gf r_cal culat or Not Available [facility] (Lab) [address] [place], [address], 01/18/2022 13:48:33 01/19/20 22 01/18/2022 COMPR EHENS JESUSITA METAB OLIC PANEL alkaline phosphatase 42 U/L 38-126 Not Available [facility] (Lab) [address] [place], [address], 01/18/2022 13:48:33 01/19/20 22 01/18/2022 COMPR EHENS JESUSITA METAB OLIC PANEL alanine aminotransfe rase 14 U/L 0-[address] [facility] (Lab) [address] [place], [address], 01/18/2022 13:48:33 01/19/20 22 01/18/2022 COMPR EHENS JESUSITA METAB OLIC PANEL aspartate aminotransfe rase 25 U/L 15-[address] [facility] (Lab) [address] [place], [address], 01/18/2022 13:48:33 01/19/20 22 01/18/2022 COMPR EHENS JESUSITA METAB OLIC PANEL bilirubin, total 0.60 mg/dL 0.20-1 .30 Not Available [facility] (Lab) [address] [place], [address], 01/18/2022 13:48:33 01/19/20 22 01/18/2022 COMPR EHENS JESUSITA METAB OLIC PANEL calcium 9.5 mg/dL 8.4-10 .2 Not Available [facility] (Lab) [address] [place], [address], 01/18/2022 13:48:33 01/19/20 22 01/18/2022 COMPR EHENS JESUSITA METAB OLIC PANEL total protein 6.4 g/dL 6.3-8. 2 Not Available [facility] (Lab) [address] [place], [address], 01/18/2022 13:48:33 01/19/20 22 01/18/2022 COMPR EHENS JESUSITA METAB OLIC PANEL albumin 3.8 g/dL 3.0-4. 4 Not Available [facility] (Lab) [address] [place], [address], 01/18/2022 13:48:33 01/19/20 22 01/18/2022 COMPR EHENS JESUSITA METAB OLIC PANEL globulin 2.6 g/dL 2.6-4. 2 Not Available [facility] (Lab) [address] [place], [address], 01/18/2022 13:48:33 01/19/20 22 01/18/2022 COMPR EHENS JESUSITA METAB OLIC PANEL A/G ratio 1.5 ratio 1.0-2. 0 Not Available [facility] (Lab) [address] [place], [address], 01/18/2022 13:48:33 01/19/20 22 01/18/2022 CBC/C OMPLE TE BLD COUNT W/DIF F white blood cells 5.7 x10'3 /uL 4.2-10 .8 Not Available [facility] (Lab) [address] [facility] [place], [address], 01/18/2022 13:07:33 01/19/20 22 01/18/2022 CBC/C OMPLE TE BLD COUNT W/DIF F red blood cells 3.65 x10'6 /uL 3.80-5 .20 low Not Available [facility] (Lab) [address] [place], [address], 01/18/2022 13:07:33 01/19/20 22 01/18/2022 CBC/C OMPLE TE BLD COUNT W/DIF F hemoglobin 11.0 g/dL 12.0-1 5.6 low Not Available [facility] (Lab) [address] [place], [address], 01/18/2022 13:07:33 01/19/20 22 01/18/2022 CBC/C OMPLE TE BLD COUNT W/DIF F hematocrit 35.1 % 35.7-4 5.7 low Not Available [facility] (Lab) [address] [place], [address], 01/18/2022 13:07:33 01/19/20 22 01/18/2022 CBC/C OMPLE TE BLD COUNT W/DIF F mean red cell volume 96.2 fL 82.0-9 9.0 Not Available [facility] (Lab) [address] [place], [address], 01/18/2022 13:07:33 01/19/20 22 01/18/2022 CBC/C OMPLE TE BLD COUNT W/DIF F mean red cell hemoglobin 30.1 pg 27.0-3 3.0 Not Available [facility] (Lab) [address] [place], [address], 01/18/2022 13:07:33 01/19/20 22 01/18/2022 CBC/C OMPLE TE BLD COUNT W/DIF F mean RBC HGB concentratio n 31.3 g/dL 31.0-3 6.0 Not Available [facility] (Lab) [address] [place], [address], 01/18/2022 13:07:33 01/19/20 22 01/18/2022 CBC/C OMPLE TE BLD COUNT W/DIF F red cell distribution width 12.7 % 11.8-1 5.5 Not Available [facility] (Lab) [address] [place], [address], 01/18/2022 13:07:33 01/19/20 22 01/18/2022 CBC/C OMPLE TE BLD COUNT W/DIF F platelets 220 x10'3 /uL 150-40 0 Not Available [facility] (Lab) [address] [place], [address], 01/18/2022 13:07:33 01/19/20 22 01/18/2022 CBC/C OMPLE TE BLD COUNT W/DIF F mean platelet volume 10.0 fL 9.0-12 .4 Not Available [facility] (Lab) [address] [place], [address], 01/18/2022 13:07:33 01/19/20 22 01/18/2022 CBC/C OMPLE TE BLD COUNT W/DIF F neutrophils 60.5 % 39.0-7 2.0 Not Available [facility] (Lab) [address] [facility] [place], [address], 01/18/2022 13:07:33 01/19/20 22 01/18/2022 CBC/C OMPLE TE BLD COUNT W/DIF F lymphocytes 29.2 % 16.0-4 7.0 Not Available [facility] (Lab) [address] [place], [address], 01/18/2022 13:07:33 01/19/20 22 01/18/2022 CBC/C OMPLE TE BLD COUNT W/DIF F monocytes 7.1 % 5.0-12 .0 Not Available [facility] (Lab) [address] [place], [address], 01/18/2022 13:07:33 01/19/20 22 01/18/2022 CBC/C OMPLE TE BLD COUNT W/DIF F eosinophils 2.3 % 1.0-7. 0 Not Available [facility] (Lab) [address] [place], [address], 01/18/2022 13:07:33 01/19/20 22 01/18/2022 CBC/C OMPLE TE BLD COUNT W/DIF F basophils 0.7 % 0.0-2. 0 Not Available [facility] (Lab) [address] [place], [address], 01/18/2022 13:07:33 01/19/20 22 01/18/2022 CBC/C OMPLE TE BLD COUNT W/DIF F immature granulocytes 0.2 % 0.00-0 .50 Not Available [facility] (Lab) [address] [place], [address], 01/18/2022 13:07:33 01/19/20 22 01/18/2022 CBC/C OMPLE TE BLD COUNT W/DIF F neutrophils, absolute count 3.43 x10'3 /uL 1.5-8. 0 Not Available [facility] (Lab) [address] [place], [address], 01/18/2022 13:07:33 01/19/20 22 01/18/2022 CBC/C OMPLE TE BLD COUNT W/DIF F lymphocytes, absolute count 1.65 x10'3 /uL 1.07-3 .43 Not Available [facility] (Lab) [address] [place], [address], 01/18/2022 13:07:33 01/19/20 22 01/18/2022 CBC/C OMPLE TE BLD COUNT W/DIF F monocytes, absolute count 0.40 x10'3 /uL 0.29-0 .99 Not Available [facility] (Lab) [address] [place], [address], 01/18/2022 13:07:33 01/19/20 22 01/18/2022 CBC/C OMPLE TE BLD COUNT W/DIF F eosinophils, absolute count 0.13 x10'3 /uL 0.02-0 .53 Not Available [facility] (Lab) [address] [place], [address], 01/18/2022 13:07:33 01/19/20 22 01/18/2022 CBC/C OMPLE TE BLD COUNT W/DIF F basophils, absolute count 0.04 x10'3 /uL 0.01-0 .08 Not Available [facility] (Lab) [address] [place], [address], 01/18/2022 13:07:33 01/19/20 22 01/18/2022 CBC/C OMPLE TE BLD COUNT W/DIF F immature granulocytes ,absolute 0.01 x10'3 /uL 0.00-0 .05 Not Available [facility] (Lab) [address] [place], [address], 01/18/2022 13:07:33 01/19/20 22 01/18/2022 CBC/C OMPLE TE BLD COUNT W/DIF F nucleated red blood cells 0.0 % -[address] [facility] (Lab) [address] [place], [address], 01/18/2022 13:07:33 01/19/20 22 01/18/2022 CBC/C OMPLE TE BLD COUNT W/DIF F NRBC# 0.00 x10'3 /uL Not Available [facility] (Lab) [address] [place], [address], 01/18/2022 13:07:33 08/01/20 22 08/01/2022 VITAM IN D 25-HY DROXY [id number] 56.0 NG/mL 30-100 Vitam in D Statu s: Defic ient: <20 ng/mL Insuf ficie nt: 20-29 ng/mL Suffi cient : 30-10 0 ng/mL Not Available [facility] (Lab) [address] [place], [address], 08/01/2022 14:00:28 08/01/20 22 08/01/2022 COMPR EHENS JESUSITA METAB OLIC PANEL sodium 139 mmol/ L 137-14 5 Not Available [facility] (Lab) [address] [place], [address], 08/01/2022 13:46:58 08/01/20 22 08/01/2022 COMPR EHENS JESUSITA METAB OLIC PANEL potassium 4.4 mmol/ L 3.5-5. 1 Not Available [facility] (Lab) [address] [place], [address], 08/01/2022 13:46:58 08/01/20 22 08/01/2022 COMPR EHENS JESUSITA METAB OLIC PANEL chloride 104 mmol/ L 98-107 Not Available [facility] (Lab) [address] [place], [address], 08/01/2022 13:46:58 08/01/20 22 08/01/2022 COMPR EHENS JESUSITA METAB OLIC PANEL carbon dioxide 30 mmol/ L 22-30 Not Available [facility] (Lab) [address] [place], [address], 08/01/2022 13:46:58 08/01/20 22 08/01/2022 COMPR EHENS JESUSITA METAB OLIC PANEL anion gap 9.4 mmol/ L 14-22 low Not Available [facility] (Lab) [address] [place], [address], 08/01/2022 13:46:58 08/01/20 22 08/01/2022 COMPR EHENS JESUSITA METAB OLIC PANEL glucose 89 mg/dL 70-99 Not Available [facility] (Lab) [address] [place], [address], 08/01/2022 13:46:58 08/01/20 22 08/01/2022 COMPR EHENS JESUSITA METAB OLIC PANEL BUN 18 mg/dL 8-19 Not Available [facility] (Lab) [address] [place], [address], 08/01/2022 13:46:58 08/01/20 22 08/01/2022 COMPR EHENS JESUSITA METAB OLIC PANEL creatinine 0.87 mg/dL 0.66-1 .25 Not Available [facility] (Lab) [address] [place], [address], 08/01/2022 13:46:58 08/01/20 22 08/01/2022 COMPR EHENS JESUSITA METAB OLIC PANEL GFR >60 Refer ence Range : [place] GFR Healt hy Adult : >60 mL/mi n/1.7 3 m2 Chron ic Kidne y Disea se: 15-60 mL/mi n/1.7 3 m2 Kidne y Failu re: <15/m L/min /1.73 m2 www.n iddk. nih.g ov The MDRD study equat ion has not been valid ated in child ayad <18 years of age; pregn ant women ; the elder ly >85 years of age; or in some racia l or ethni c subgr oups, such as Hispa nics. Outsi de the valid ated giovany eters , estim ated GFR is less accur ate, requi ring clini sanjiv judgm ent on a case- by-ca se basis . Clini sanjiv inter preta tion for other races and ages must be made by the clini berenice. The MDRD study equat ion has not been valid ated for the evalu ation of serum creat inine relat ed to nutri jamey l statu s or medic ation usage . For perso ns <18 years of age, a pedia tric GFR calcu lator is avail able on the [facility] websi te: https ://elvis w.andres buckner.o preethi/pr ofess ional s/kdo qi/gf r_cal culat or Not Available [facility] (Lab) [address] [place], [address], 08/01/2022 13:46:58 08/01/20 22 08/01/2022 COMPR EHENS JESUSITA METAB OLIC PANEL alkaline phosphatase 49 U/L 38-126 Not Available [facility] (Lab) [address] [place], [address], 08/01/2022 13:46:58 08/01/20 22 08/01/2022 COMPR EHENS JESUSITA METAB OLIC PANEL alanine aminotransfe rase 14 U/L 0-[address] [facility] (Lab) [address] [place], [address], 08/01/2022 13:46:58 08/01/20 22 08/01/2022 COMPR EHENS JESUSITA METAB OLIC PANEL aspartate aminotransfe rase 28 U/L 15-[address] [facility] (Lab) [address] [place], [address], 08/01/2022 13:46:58 08/01/20 22 08/01/2022 COMPR EHENS JESUSITA METAB OLIC PANEL bilirubin, total 1.10 mg/dL 0.20-1 .30 Not Available [facility] (Lab) [address] [place], [address], 08/01/2022 13:46:58 08/01/20 22 08/01/2022 COMPR EHENS JESUSITA METAB OLIC PANEL calcium 9.9 mg/dL 8.4-10 .2 Not Available [facility] (Lab) [address] [place], [address], 08/01/2022 13:46:58 08/01/20 22 08/01/2022 COMPR EHENS JESUSITA METAB OLIC PANEL total protein 6.8 g/dL 6.3-8. 2 Not Available [facility] (Lab) [address] [place], [address], 08/01/2022 13:46:58 08/01/20 22 08/01/2022 COMPR EHENS JESUSITA METAB OLIC PANEL albumin 4.3 g/dL 3.0-4. 4 Not Available [facility] (Lab) [address] [place], [address], 08/01/2022 13:46:58 08/01/20 22 08/01/2022 COMPR EHENS JESUSITA METAB OLIC PANEL globulin 2.5 g/dL 2.6-4. 2 low Not Available [facility] (Lab) [address] [place], [address], 08/01/2022 13:46:58 08/01/20 22 08/01/2022 COMPR EHENS JESUSITA METAB OLIC PANEL A/G ratio 1.7 ratio 1.0-2. 0 Not Available [facility] (Lab) [address] [place], [address], 08/01/2022 13:46:58 08/01/20 22 08/01/2022 LIPID PANEL cholesterol 159 mg/dL 140-19 9 NIH ARLEEN NSUS RECOM MENDA TION FOR AJIT STERO L: ADULT CHILD LOW RISK: <200 <170 BORDE RLINE : <200- 239 ----- HIGH RISK: >240 >200 Not Available [facility] (Lab) [address] [place], [address], 08/01/2022 13:46:52 08/01/20 22 08/01/2022 LIPID PANEL triglyceride s 38 mg/dL 0-150 NIH ARLEEN NSUS REPOR T RECOM MENDA TION FOR TRIGL YCERI ALEX: ADULT CHILD LOW RISK: <150 ----- BODER LINE: 150-1 99 ----- HIGH RISK: >200 ----- Not Available [facility] (Lab) [address] [place], [address], 08/01/2022 13:46:52 08/01/20 22 08/01/2022 LIPID PANEL HDL cholesterol 101 mg/dL 40- Not Available [facility] (Lab) [address] [place], [address], 08/01/2022 13:46:52 08/01/20 22 08/01/2022 LIPID PANEL LDL cholesterol, calculated 50 mg/dL 0-130 NIH ARLEEN NSUS REPOR T RECOM MENDA TIONS FOR LDL: ADULT CHILD LOW RISK <130 <110 (OPTI MAL LDL) <100 ----- BORDE RLINE : 130-1 59 ----- HIGH RISK: >160 >130 A TRIGL YCERI DE RESUL T >400 INVAL IDATE S THE CALCU LATIO N FOR LDL FRACT IONAT ION - THE LDL RESUL T WILL NOT BE REPOR CJ. Not Available [facility] (Lab) [address] [place], [address], 08/01/2022 13:46:52 08/01/20 22 08/01/2022 CBC/C OMPLE TE BLD COUNT W/DIF F hematocrit 35.3 % 35.7-4 5.7 low Not Available [facility] (Lab) [address] [place], [address], 08/01/2022 13:05:16 08/01/20 22 08/01/2022 CBC/C OMPLE TE BLD COUNT W/DIF F white blood cells 5.2 x10'3 /uL 4.2-10 .8 Not Available [facility] (Lab) [address] [place], [address], 08/01/2022 13:05:16 08/01/20 22 08/01/2022 CBC/C OMPLE TE BLD COUNT W/DIF F red blood cells 3.68 x10'6 /uL 3.80-5 .20 low Not Available [facility] (Lab) [address] [place], [address], 08/01/2022 13:05:16 08/01/20 22 08/01/2022 CBC/C OMPLE TE BLD COUNT W/DIF F hemoglobin 11.2 g/dL 12.0-1 5.6 low Not Available [facility] (Lab) [address] [place], [address], 08/01/2022 13:05:16 08/01/20 22 08/01/2022 CBC/C OMPLE TE BLD COUNT W/DIF F mean red cell volume 95.9 fL 82.0-9 9.0 Not Available [facility] (Lab) [address] [place], [address], 08/01/2022 13:05:16 08/01/20 22 08/01/2022 CBC/C OMPLE TE BLD COUNT W/DIF F mean red cell hemoglobin 30.4 pg 27.0-3 3.0 Not Available [facility] (Lab) [address] [place], [address], 08/01/2022 13:05:16 08/01/20 22 08/01/2022 CBC/C OMPLE TE BLD COUNT W/DIF F mean RBC HGB concentratio n 31.7 g/dL 31.0-3 6.0 Not Available [facility] (Lab) [address] [facility] [place], [address], 08/01/2022 13:05:16 08/01/20 22 08/01/2022 CBC/C OMPLE TE BLD COUNT W/DIF F red cell distribution width 12.8 % 11.8-1 5.5 Not Available [facility] (Lab) [address] [place], [address], 08/01/2022 13:05:16 08/01/20 22 08/01/2022 CBC/C OMPLE TE BLD COUNT W/DIF F platelets 205 x10'3 /uL 150-40 0 Not Available [facility] (Lab) [address] [place], [address], 08/01/2022 13:05:16 08/01/20 22 08/01/2022 CBC/C OMPLE TE BLD COUNT W/DIF F mean platelet volume 10.1 fL 9.0-12 .4 Not Available [facility] (Lab) [address] [place], [address], 08/01/2022 13:05:16 08/01/20 22 08/01/2022 CBC/C OMPLE TE BLD COUNT W/DIF F neutrophils 56.2 % 39.0-7 2.0 Not Available [facility] (Lab) [address] [place], [address], 08/01/2022 13:05:16 08/01/20 22 08/01/2022 CBC/C OMPLE TE BLD COUNT W/DIF F lymphocytes 31.2 % 16.0-4 7.0 Not Available [facility] (Lab) [address] [place], [address], 08/01/2022 13:05:16 08/01/20 22 08/01/2022 CBC/C OMPLE TE BLD COUNT W/DIF F monocytes 9.3 % 5.0-12 .0 Not Available [facility] (Lab) [address] [place], [address], 08/01/2022 13:05:16 08/01/20 22 08/01/2022 CBC/C OMPLE TE BLD COUNT W/DIF F eosinophils 2.1 % 1.0-7. 0 Not Available [facility] (Lab) [address] [place], [address], 08/01/2022 13:05:16 08/01/20 22 08/01/2022 CBC/C OMPLE TE BLD COUNT W/DIF F basophils 0.8 % 0.0-2. 0 Not Available [facility] (Lab) [address] [place], [address], 08/01/2022 13:05:16 08/01/20 22 08/01/2022 CBC/C OMPLE TE BLD COUNT W/DIF F immature granulocytes 0.4 % 0.00-0 .50 Not Available [facility] (Lab) [address] [place], [address], 08/01/2022 13:05:16 08/01/20 22 08/01/2022 CBC/C OMPLE TE BLD COUNT W/DIF F neutrophils, absolute count 2.90 x10'3 /uL 1.5-8. 0 Not Available [facility] (Lab) [address] [place], [address], 08/01/2022 13:05:16 08/01/20 22 08/01/2022 CBC/C OMPLE TE BLD COUNT W/DIF F lymphocytes, absolute count 1.61 x10'3 /uL 1.07-3 .43 Not Available [facility] (Lab) [address] [place], [address], 08/01/2022 13:05:16 08/01/20 22 08/01/2022 CBC/C OMPLE TE BLD COUNT W/DIF F monocytes, absolute count 0.48 x10'3 /uL 0.29-0 .99 Not Available [facility] (Lab) [address] [place], [address], 08/01/2022 13:05:16 08/01/20 22 08/01/2022 CBC/C OMPLE TE BLD COUNT W/DIF F eosinophils, absolute count 0.11 x10'3 /uL 0.02-0 .53 Not Available [facility] (Lab) [address] [place], [address], 08/01/2022 13:05:16 08/01/20 22 08/01/2022 CBC/C OMPLE TE BLD COUNT W/DIF F basophils, absolute count 0.04 x10'3 /uL 0.01-0 .08 Not Available [facility] (Lab) [address] [place], [address], 08/01/2022 13:05:16 08/01/20 22 08/01/2022 CBC/C OMPLE TE BLD COUNT W/DIF F immature granulocytes ,absolute 0.02 x10'3 /uL 0.00-0 .05 Not Available [facility] (Lab) [address] [place], [address], 08/01/2022 13:05:16 08/01/20 22 08/01/2022 CBC/C OMPLE TE BLD COUNT W/DIF F nucleated red blood cells 0.0 % -[address] [facility] (Lab) [address] [place], [address], 08/01/2022 13:05:16 08/01/20 22 08/01/2022 CBC/C OMPLE TE BLD COUNT W/DIF F NRBC# 0.00 x10'3 /uL Not Available [facility] (Lab) [address] [place], [address], 08/01/2022 13:05:16 06/04/20 23 06/04/2023 CBC/C OMPLE TE BLD COUNT W/DIF F white blood cells 5.0 x10'3 /uL 4.2-10 .8 Not Available [facility] (Lab) [address] [place], [address], 06/04/2023 12:40:21 06/04/20 23 06/04/2023 CBC/C OMPLE TE BLD COUNT W/DIF F red blood cells 3.99 x10'6 /uL 3.80-5 .20 Not Available [facility] (Lab) [address] [place], [address], 06/04/2023 12:40:21 06/04/20 23 06/04/2023 CBC/C OMPLE TE BLD COUNT W/DIF F hemoglobin 11.8 g/dL 12.0-1 5.6 low Not Available [facility] (Lab) [address] [place], [address], 06/04/2023 12:40:21 06/04/20 23 06/04/2023 CBC/C OMPLE TE BLD COUNT W/DIF F hematocrit 37.4 % 35.7-4 5.7 Not Available [facility] (Lab) [address] [place], [address], 06/04/2023 12:40:21 06/04/20 23 06/04/2023 CBC/C OMPLE TE BLD COUNT W/DIF F mean red cell volume 93.7 fL 82.0-9 9.0 Not Available [facility] (Lab) [address] [place], [address], 06/04/2023 12:40:21 06/04/20 23 06/04/2023 CBC/C OMPLE TE BLD COUNT W/DIF F mean red cell hemoglobin 29.6 pg 27.0-3 3.0 Not Available [facility] (Lab) [address] [place], [address], 06/04/2023 12:40:21 06/04/2006/04/2023 CBC/C OMPLE TE BLD COUNT W/DIF F mean RBC HGB concentratio n 31.6 g/dL 31.0-3 6.0 Not Available [facility] (Lab) [address] [place], [address], 06/04/2023 12:40:21 06/04/20 23 06/04/2023 CBC/C OMPLE TE BLD COUNT W/DIF F red cell distribution width 12.5 % 11.8-1 5.5 Not Available [facility] (Lab) [address] [place], [address], 06/04/2023 12:40:21 06/04/2006/04/2023 CBC/C OMPLE TE BLD COUNT W/DIF F platelets 220 x10'3 /uL 150-40 0 Not Available [facility] (Lab) [address] [place], [address], 06/04/2023 12:40:21 06/04/2006/04/2023 CBC/C OMPLE TE BLD COUNT W/DIF F mean platelet volume 10.0 fL 9.0-12 .4 Not Available [facility] (Lab) [address] [place], [address], 06/04/2023 12:40:21 06/04/2006/04/2023 CBC/C OMPLE TE BLD COUNT W/DIF F neutrophils 55.7 % 39.0-7 2.0 Not Available [facility] (Lab) [address] [place], [address], 06/04/2023 12:40:21 06/04/20 23 06/04/2023 CBC/C OMPLE TE BLD COUNT W/DIF F lymphocytes 32.4 % 16.0-4 7.0 Not Available [facility] (Lab) [address] [place], [address], 06/04/2023 12:40:21 06/04/2006/04/2023 CBC/C OMPLE TE BLD COUNT W/DIF F monocytes 9.1 % 5.0-12 .0 Not Available [facility] (Lab) [address] [place], [address], 06/04/2023 12:40:21 06/04/2006/04/2023 CBC/C OMPLE TE BLD COUNT W/DIF F eosinophils 1.8 % 1.0-7. 0 Not Available [facility] (Lab) [address] [place], [address], 06/04/2023 12:40:21 06/04/2006/04/2023 CBC/C OMPLE TE BLD COUNT W/DIF F basophils 0.8 % 0.0-2. 0 Not Available [facility] (Lab) [address] [place], [address], 06/04/2023 12:40:21 06/04/2006/04/2023 CBC/C OMPLE TE BLD COUNT W/DIF F immature granulocytes 0.2 % 0.00-0 .50 Not Available [facility] (Lab) [address] [place], [address], 06/04/2023 12:40:21 06/04/2006/04/2023 CBC/C OMPLE TE BLD COUNT W/DIF F neutrophils, absolute count 2.77 x10'3 /uL 1.5-8. 0 Not Available [facility] (Lab) [address] [place], [address], 06/04/2023 12:40:21 06/04/2006/04/2023 CBC/C OMPLE TE BLD COUNT W/DIF F lymphocytes, absolute count 1.61 x10'3 /uL 1.07-3 .43 Not Available [facility] (Lab) [address] [place], [address], 06/04/2023 12:40:21 06/04/2006/04/2023 CBC/C OMPLE TE BLD COUNT W/DIF F monocytes, absolute count 0.45 x10'3 /uL 0.29-0 .99 Not Available [facility] (Lab) [address] [place], [address], 06/04/2023 12:40:21 06/04/2006/04/2023 CBC/C OMPLE TE BLD COUNT W/DIF F eosinophils, absolute count 0.09 x10'3 /uL 0.02-0 .53 Not Available [facility] (Lab) [address] [place], [address], 06/04/2023 12:40:21 06/04/2006/04/2023 CBC/C OMPLE TE BLD COUNT W/DIF F basophils, absolute count 0.04 x10'3 /uL 0.01-0 .08 Not Available [facility] (Lab) [address] [place], [address], 06/04/2023 12:40:21 06/04/2006/04/2023 CBC/C OMPLE TE BLD COUNT W/DIF F immature granulocytes ,absolute 0.01 x10'3 /uL 0.00-0 .05 Not Available [facility] (Lab) [address] [place], [address], 06/04/2023 12:40:21 06/04/20 23 06/04/2023 CBC/C OMPLE TE BLD COUNT W/DIF F nucleated red blood cells 0.0 % -[address] [facility] (Lab) [address] [place], [address], 06/04/2023 12:40:21 06/04/20 23 06/04/2023 CBC/C OMPLE TE BLD COUNT W/DIF F NRBC# 0.00 x10'3 /uL Not Available [facility] (Lab) [address] [place], [address], 06/04/2023 12:40:21 06/04/20 23 06/04/2023 LIPID PANEL cholesterol 163 mg/dL 140-19 9 NIH ARLEEN NSUS RECOM MENDA TION FOR AJIT STERO L: ADULT CHILD LOW RISK: <200 <170 BORDE RLINE : <200- 239 ----- HIGH RISK: >240 >200 Not Available [facility] (Lab) [address] [place], [address], 06/04/2023 12:56:01 06/04/2006/04/2023 LIPID PANEL triglyceride s 36 mg/dL 0-150 NIH ARLEEN NSUS REPOR T RECOM MENDA TION FOR TRIGL YCERI ALEX: ADULT CHILD LOW RISK: <150 ----- BODER LINE: 150-1 99 ----- HIGH RISK: >200 ----- Not Available [facility] (Lab) [address] [place], [address], 06/04/2023 12:56:01 06/04/2006/04/2023 LIPID PANEL HDL cholesterol 121 mg/dL 40- Not Available [facility] (Lab) [address] [place], [address], 06/04/2023 12:56:01 06/04/2006/04/2023 LIPID PANEL LDL cholesterol, calculated 35 mg/dL 0-130 NIH ARLEEN NSUS REPOR T RECOM MENDA TIONS FOR LDL: ADULT CHILD LOW RISK <130 <110 (OPTI MAL LDL) <100 ----- RIYADE RLINE : 130-1 59 ----- HIGH RISK: >160 >130 A TRIGL YCERI DE RESUL T >400 INVAL IDATE S THE CALCU LATIO N FOR LDL FRACT IONAT ION - THE LDL RESUL T WILL NOT BE REPOR CJ. Not Available [facility] (Lab) [address] [place], [address], 06/04/2023 12:56:01 06/04/2006/04/2023 COMPR EHENS JESUSITA METAB OLIC PANEL sodium 138 mmol/ L 137-14 5 Not Available [facility] (Lab) [address] [place], [address], 06/04/2023 12:47:37 06/04/2006/04/2023 COMPR EHENS JESUSITA METAB OLIC PANEL potassium 4.4 mmol/ L 3.5-5. 1 Not Available [facility] (Lab) [address] [place], [address], 06/04/2023 12:47:37 06/04/2006/04/2023 COMPR EHENS JESUSITA METAB OLIC PANEL chloride 101 mmol/ L 98-107 Not Available [facility] (Lab) [address] [place], [address], 06/04/2023 12:47:37 06/04/2006/04/2023 COMPR EHENS JESUSITA METAB OLIC PANEL carbon dioxide 31 mmol/ L 22-30 high Not Available [facility] (Lab) [address] [place], [address], 06/04/2023 12:47:37 06/04/20 23 06/04/2023 COMPR EHENS JESUSITA METAB OLIC PANEL anion gap 10.4 mmol/ L 14-22 low Not Available [facility] (Lab) [address] [place], [address], 06/04/2023 12:47:37 06/04/2006/04/2023 COMPR EHENS JESUSITA METAB OLIC PANEL glucose 90 mg/dL 70-99 Not Available [facility] (Lab) [address] [place], [address], 06/04/2023 12:47:37 06/04/2006/04/2023 COMPR EHENS JESUSITA METAB OLIC PANEL BUN 14 mg/dL 8-19 Not Available [facility] (Lab) [address] [facility] [place], [address], 06/04/2023 12:47:37 06/04/2006/04/2023 COMPR EHENS JESUSITA METAB OLIC PANEL creatinine 0.82 mg/dL 0.66-1 .25 Not Available [facility] (Lab) [address] [place], [address], 06/04/2023 12:47:37 06/04/2006/04/2023 COMPR EHENS JESUSITA METAB OLIC PANEL GFR >60 Refer ence Range : [place] GFR Healt hy Adult : >60 mL/mi n/1.7 3 m2 Chron ic Kidne y Disea se: 15-60 mL/mi n/1.7 3 m2 Kidne y Failu re: <15/m L/min /1.73 m2 www.n iddk. nih.g ov The MDRD study equat ion has not been valid ated in child ayad <18 years of age; pregn ant women ; the elder ly >85 years of age; or in some racia l or ethni c subgr oups, such as Hispa nics. Outsi de the valid ated giovany eters , estim ated GFR is less accur ate, requi ring clini sanjiv judgm ent on a case- by-ca se basis . Clini sanjiv inter preta tion for other races and ages must be made by the clini berenice. The MDRD study equat ion has not been valid ated for the evalu ation of serum creat inine relat ed to nutri jamey l statu s or medic ation usage . For perso ns <18 years of age, a pedia tric GFR calcu lator is avail able on the [facility] websi te: https ://elvis yung.andres fordey.o rg/pr ofess ional s/kdo qi/gf r_cal culat or Not Available [facility] (Lab) [address] [place], [address], 06/04/2023 12:47:37 06/04/20 23 06/04/2023 COMPR EHENS JESUSITA METAB OLIC PANEL alkaline phosphatase 49 U/L 38-126 Not Available [facility] (Lab) [address] [place], [address], 06/04/2023 12:47:37 06/04/20 23 06/04/2023 COMPR EHENS JESUSITA METAB OLIC PANEL alanine aminotransfe rase 20 U/L 0-[address] [facility] (Lab) [address] [place], [address], 06/04/2023 12:47:37 06/04/20 23 06/04/2023 COMPR EHENS JESUSITA METAB OLIC PANEL aspartate aminotransfe rase 31 U/L 15-[address] [facility] (Lab) [address] [place], [address], 06/04/2023 12:47:37 06/04/20 23 06/04/2023 COMPR EHENS JESUSITA METAB OLIC PANEL bilirubin, total 0.90 mg/dL 0.20-1 .30 Not Available [facility] (Lab) [address] [place], [address], 06/04/2023 12:47:37 06/04/20 23 06/04/2023 COMPR EHENS JESUSITA METAB OLIC PANEL calcium 10.0 mg/dL 8.4-10 .2 Not Available [facility] (Lab) [address] [place], [address], 06/04/2023 12:47:37 06/04/2006/04/2023 COMPR EHENS JESUSITA METAB OLIC PANEL total protein 7.1 g/dL 6.3-8. 2 Not Available [facility] (Lab) [address] [place], [address], 06/04/2023 12:47:37 06/04/20 23 06/04/2023 COMPR EHENS JESUSITA METAB OLIC PANEL albumin 4.3 g/dL 3.0-4. 4 Not Available [facility] (Lab) [address] [place], [address], 06/04/2023 12:47:37 06/04/20 23 06/04/2023 COMPR EHENS JESUSITA METAB OLIC PANEL globulin 2.8 g/dL 2.6-4. 2 Not Available [facility] (Lab) [address] [place], [address], 06/04/2023 12:47:37 06/04/20 23 06/04/2023 COMPR EHENS JESUSITA METAB OLIC PANEL A/G ratio 1.5 ratio 1.0-2. 0 Not Available [facility] (Lab) [address] [place], [address], 06/04/2023 12:47:37 06/04/20 23 06/04/2023 VITAM IN D 25-HY DROXY vd25oh 54.7 NG/mL 30-100 Vitam in D Statu s: Defic ient: <20 ng/mL Insuf ficie nt: 20-29 ng/mL Suffi cient : 30-10 0 ng/mL Not Available [facility] (Lab) [address] [place], [address], 06/04/2023 15:03:46 09/21/20 22 09/21/2022 MAMMO , scree melissa, digit al, bilat eral No observ ation record ed. [id number] [facility] [address], [place], [address], 01/10/2023 03:10:56 Result Notes None recorded. Problems Name Problem SNOMED Code Status Onset Date Resolution Date Notes Provider Name and Address Organization Details Recorded Time Vitamin D below reference range 224534055 Active 2022 Not Available [facility] 3 08:46:00 Abnormal urine 997471472 Completed Not Available [facility] 3 02:56:14 Benign essential hypertensi on 0079245 Completed Not Available [facility] 3 02:56:14 Degenerati ve joint disease involving multiple joints 624733584 Active Not Available [facility] 3 08:46:00 Osteopenia 111732350 Active Not Available [facility] 3 08:46:00 Dyslipidem ia 016358142 Active 2017 Not Available [facility] 3 08:46:00 Hypertensi ve disorder 24810946 Active Not Available [facility] 3 08:46:00 Essential hypertensi on 01152987 Active Not Available [facility] 3 08:46:00 Eustachian tube disorder 90827650 Active Not Available [facility] 3 08:46:00 Neck pain 83576769 Active Not Available [facility] 3 08:46:00 Problem Notes None recorded. Procedures Surgical History Date Name Laterality Status Provider Name and Address Organization Details Recorded Time Tonsillectomy completed Not Available [facility] 01/10/2023 02:46:36 Excisions - Specify completed Not Available [facility] 01/10/2023 02:46:36 Cataract Surgery completed Not Available [facility] 01/10/2023 02:46:36 Imaging Results Imaging Date Name Status LastModified by Organiz ation Details LastModified Time 09/21/2022 MAMMO, screening, digital, bilateral completed [id number] [facility] [address], [place], [address], 01/10/2023 03:10:56 Procedure Notes None recorded. Medical Equipment None Reported. Allergies Allergen ID Allergen Name Allergen Category Reaction Reaction Severity Criticality Documentation Date Start Date Code Code System Note Provider Name and Address Organization Details Recorded Time 5338 sulfameth oxazole / trimethop rim medicatio n Not available Not available Not available 01/10/2023 14001 RxNorm Not Available [facility] 3 03:10:17 5339 codeine medicatio n Not available Not available Not available 01/10/2023 2670 RxNorm Not Available [facility] 3 03:10:18 Medications Name Sig Start Date Stop Date Status Note LastModified by Organization Details LastModified Time amoxicill in 500 mg capsule TAKE 1 CAPSULE BY MOUTH EVERY 6 HOURS UNTIL GONE active Not Available Not Available No t Available cefuroxim e axetil 250 mg tablet 12/05 completed Not Available Not Available Not Available azithromy sandy 250 mg tablet 11/25 completed Not Available Not Available Not Available ibuprofen 200 mg capsule Take 1 capsule every 6 hours by oral route. 12/05 completed Not Available Not Available Not Available neomycin- polymyxin -dexameth 3.5 mg/mL-10, 000 unit/mL-0 .1% eye drops INSTILL 1 DROP INTO BOTH EYES 4 TIMES A DAY FOR 1 WEEKS active Not Available Not Available No t Available clotrimaz ole-betam ethasone 1 %-0.05 % topical cream APPLY TO AFFECTED AREA TWICE A DAY FOR TWO WEEKS 02/08 completed Not Available Not Available Not Available mometason e 50 mcg/actua tion nasal spray SHAKE WELL AND U 2 SPRAYS IEN D 12/05 completed Not Available Not Available Not Available lisinopri l 5 mg tablet TAKE 1 TABLET BY MOUTH EVERY DAY active Not Available Not Available No t Available estradiol 0.5 mg tablet TAKE 1 TABLET BY MOUTH EVERY DAY active Not Available Not Available No t Available ergocalci ferol (vitamin D2) 1,250 mcg (50,000 unit) capsule 11/25 completed Not Available Not Available Not Available lidocaine 3 %-hydroco rtisone 0.5 % topical cream APPLY TO THE AFFECTED AREAS RECTALLY BID active Not Available Not Available No t Available levofloxa sandy 500 mg tablet 12/05 completed Not Available Not Available Not Available Anusol-HC 25 mg rectal supposito ry Insert 1 supposit ory twice a day by rectal route. 12/05 completed Not Available Not Available Not Available methylpre dnisolone 4 mg tablets in a dose pack 12/07 completed Not Available Not Available Not Available indometha sandy ER 75 mg capsule,e xtended release Take 1 capsule every day by oral route for 20 days. active Not Available Not Available No t Available fluticaso ne propionat e 50 mcg/actua tion nasal spray,uzma pension 12/05 completed Not Available Not Available Not Available progester one micronize d 100 mg capsule TAKE 1 CAPSULE BY MOUTH ONCE DAILY active Not Available Not Available No t Available Pneumovax -23 25 mcg/0.5 mL injection syringe ADM 0.5ML IM UTD 12/25 completed Not Available Not Available Not Available Vitamin D3 25 mcg (1,000 unit) capsule Take 1 capsule every day by oral route. 2017 active Not Available Not Available Not Avai lable Prempro 0.45 mg-1.5 mg tablet TK 1 T PO QD 12/25 completed pt states she is now taking Progeste claire and Estradio l Not Available Not Available Not Available rosuvasta tin 10 mg tablet TAKE 1 TABLET BY MOUTH EVERY DAY active Not Available Not Available No t Available calcium 01/25 completed Not Available Not Available Not Available Vitamin D 01/25 completed Not Available Not Available Not Available Centrum Silver 2018 active Not Available Not Available Not Avai lable multivita min 2016 active Not Available Not Available Not Avai lable Calcium 600 + D(3) 2018 active Not Available Not Available Not Avai lable One-A-Day Cholester ol Plus 12/05 completed Not Available Not Available Not Available aspirin 81 mg effervesc ent tablet Take by oral route. 2015 active Not Available Not Available Not Avai lable GaviLyte- N 420 gram oral solution 12/22 completed Not Available Not Available Not Available Fluzone High-Dose (PF) 180 mcg/0.5 mL intramusc ular syringe ADM 0.5ML IM UTD 12/25 completed Not Available Not Available Not Available Vitals Date Recorded Body height Body mass index (BMI) Body weight Body temperature Heart rate Systolic blood pressure Diastolic blood pressure Provider Name and Address Organization Details Last Updated DateTime 3 165.1 cm 25 kg/m2 61576.8 6 g 98.3 [degF] 68 /min 132 mm[Hg] 84 mm[Hg] JOIE Ambrocio [facility] [employer] [facility] 3 10:08:05 Date Recorded Body height Body mass index (BMI) Body weight Body temperature Heart rate Oxygen saturation Oxygen saturation in Arterial blood by Pulse oximetry Systolic blood pressure Diastolic blood pressure Provider Name and Address Organization Details Last Updated DateTime 3 165.1 cm 24 kg/m2 24762.3 g 97.3 [degF] 58 /min 100 % 100 % 130 mm[Hg] 80 mm[Hg] Mira Burkett MA [facility] [employer] [facility] 3 10:04:06 Date Recorded Body height Provider Name an d Address Organization Details Last Updated DateTime 09/13/2023 165.1 cm JOIE Ambrocio [facility] [employer] [facility] 09/13/2023 11:15:42 Date Recorded Body mass index (BMI) Body height Heart rate Body temperature Body weight Systolic blood pressure Diastolic blood pressure Provider Name and Address Organization Details Last Updated DateTime 2 25 kg/m2 165.1 cm 72 /min 97.6 [degF] 84984.8 6 g 128 mm[Hg] 72 mm[Hg] Not Available [facility] 3 02:47:19 Date Recorded Body mass index (BMI) Body height Heart rate Body temperature Body weight Systolic blood pressure Diastolic blood pressure Provider Name and Address Organization Details Last Updated DateTime 2 24.5 kg/m2 165.1 cm 62 /min 97.8 [degF] 26925.0 8 g 148 mm[Hg] 84 mm[Hg] Not Available [facility] 3 02:47:19 Social History Question Answer Notes LastModified by Organization Details LastModified Time Tobacco Smoking Status Never Smoker Not Available [facility] 01/10/2023 02:34:16 Do You Have An Advance Directive? Yes MIGRATION.0301 [id number] Information not available 01/10/2023 What Is Your Level Of Alcohol Consumption? None MIGRATION.0301 [id number] Information not available 01/10/2023 Are You Blind Or Do You Have Difficulty Seeing? No MIGRATION.0301 [id number] Information not available 01/10/2023 What Is Your Level Of Caffeine Consumption? Occasional MIGRATION.0301 093809 Information not available 01/10/2023 How Much Tobacco Do You Chew? None MIGRATION.0301 [id number] Information not available 01/10/2023 In The 14 Days Before Symptom Onset, Have You Had Close Contact With A Laboratory-confi rmed COVID-19 While That Case Was Ill? No MIGRATION.030 [id number] Information not available 01/10/2023 In The 14 Days Before Symptom Onset, Have You Had Close Contact With A Person Who Is Under Investigation For COVID-19 While That Person Was Ill? No MIGRATION.030 060495 Information not available 01/10/2023 Are You Deaf Or Do You Have Serious Difficulty Hearing? No MIGRATION.030 [id number] Information not available 01/10/2023 What Type Of Diet Are You Following? REGULAR MIGRATION.030 732195 Information not available 01/10/2023 Which Illicit Or Recreational Drugs Have You Used? None MIGRATION.030 970822 Information not available 01/10/2023 Do You Or Have You Ever Used E-cigarettes Or Vape? Never Used Electronic Cigarettes MIGRATION.030 165412 Information not available 01/10/2023 What Is The Highest Grade Or Level Of School You Have Completed Or The Highest Degree You Have Received? [id number] MIGRATION.030 578404 Information not available 01/10/2023 What Is Your Occupation? Retired MIGRATION.030 765001 Information not available 01/10/2023 Have There Been Any Changes To Your Family Or Social Situation? No MIGRATION.030 892787 Information not available 01/10/2023 What Is The Fluoride Status Of Your Home? Unknown MIGRATION.030 294001 Information not available 01/10/2023 Are There Any Guns Present In Your Home? Yes MIGRATION.0301 [id number] Information not available 01/10/2023 Do You Use Insect Repellent Routinely? No MIGRATION.0301 232702 Information not available 01/10/2023 Where Do You Live? SingleLevelHouse MIGRATION.0301 088480 Information not available 01/10/2023 Do You Have A Medical Power Of Spot Welder? Yes MIGRATION.0301 553721 Information not available 01/10/2023 What Was The Date Of Your Most Recent Tobacco Screening? 09/13/2023 [email or web address] Information not available 09/13/2023 Do You Have Any Pets? No MIGRATION.0301 686384 Information not available 01/10/2023 What Is Your Relationship Status? MIGRATION.0301 335975 Information not available 01/10/2023 Do You Use Your Seat Belt Or Car Seat Routinely? Yes MIGRATION.0301 [id number] Information not available 01/10/2023 Do You Have Smoke And Carbon Monoxide Detectors In Your Home? Yes MIGRATION.0301 923187 Information not available 01/10/2023 Are You Passively Exposed To Smoke? No MIGRATION.0301 560707 Information not available 01/10/2023 Do You Or Have You Ever Used Smokeless Tobacco? Never Used Smokeless Tobacco MIGRATION.0301 134027 Information not available 01/10/2023 Are There Any Smokers In Your House? No MIGRATION.0301 503653 Information not available 01/10/2023 How Much Tobacco Do You Smoke? No MIGRATION.0301 [id number] Information not available 01/10/2023 What Types Of Sporting Activities Do You Participate In? None MIGRATION.0301 014966 Information not available 01/10/2023 Do You Feel Stressed (tense, Restless, Nervous, Or Anxious, Or Unable To Sleep At Night)? [id number] MIGRATION.0301 527122 Information not available 01/10/2023 Do You Use Any Illicit Or Recreational Drugs? No MIGRATION.0301 184666 Information not available 01/10/2023 Do You Use Sunscreen Routinely? No MIGRATION.0301 137756 Information not available 01/10/2023 Has Tobacco Cessation Counseling Been Provided? No Not Needed-n ever Smoked MIGRATION.0301 321108 Information not available 01/10/2023 How Many Years Have You Smoked Tobacco? 0 MIGRATION.0301 426990 Information not available 01/10/2023 Have You Recently Traveled Abroad? No MIGRATION.0301 954870 Information not available 01/10/2023 Do You Have Any Dietary Restrictions? No MIGRATION.0301 917948 Information not available 01/10/2023 Do You Or Have You Ever Used Any Other Forms Of Tobacco Or Nicotine? No MIGRATION.0301 428720 Information not available 01/10/2023 Sex: Female Functional Status Question Answer Note LastModified by Organizat ion Details LastModified Time Do you have difficulty walking or climbing stairs? No MIGRATION.[id number] 026 Information not available 01/10/2023 Do you have transportation difficulties? No MIGRATION.3316513 026 Information not available 01/10/2023 Are you able to walk? YESWOREST MIGRATION.2928244 026 Information not available 01/10/2023 Do you have difficulty doing errands alone? No MIGRATION.0483557 026 Information not available 01/10/2023 Are you able to care for yourself? Yes MIGRATION.2537616 026 Information not available 01/10/2023 Do you have difficulty dressing or bathing? No MIGRATION.1449729 026 Information not available 01/10/2023 What is your exercise level? Occasional MIGRATION.[id number] 026 Information not available 01/10/2023 Mental Status Question Answer Note LastModified by Organizat ion Details LastModified Time Do you have difficulty concentrating, remembering or making decisions? No MIGRATION.[id number] Information not available 01/10/2023 Family History Relationship Description Onset Age of this Age Resolved Age Notes LastModified by Organization Details LastModified Time Mother Essential hypertension MIGRATION.940 [id number] Not available 01/10/2023 02:46:38 Mother Atrial fibrillation MIGRATION.695 [id number] Not available 01/10/2023 02:46:38 Father Asbestosis MIGRATION.559 [id number] Not available 01/10/2023 02:46:38 Sister Aneurysm brain MIGRATION.476 [id number] Not available 01/10/2023 02:46:38 Medical History Condition Response BLINDNESS N NERVE DISEASE N RHEUMATIC FEVER N BLADDER PROBLEMS N KIDNEY STONES N OTHER # 1 N POLIO N LUNG DISEASE/DISORDER N RADIATION / CHEMOTHERAPY N COPD N Other # 2 N BLOOD DISEASES N SURGERY N EAR OR HEARING PROBLEMS N MUMPS N BOWEL PROBLEMS N DEPRESSION (INCLUDING POST ) N STROKE/TIA N ULCERS N BENIGN PROSTATIC HYPERPLASIA N MEASLES N MYOCARDIAL INFARCTION N OBESITY N GERD/NAUSEA N ANEURYSM N URINARY/BLADDER/KIDNEY PROBLEMS N INPATIENT PSYCH CARE N CORONARY ARTERY DISEASE (CAD) N ADDICTION CONCERNS N Impotence N ENDOMETRIOSIS N USE OF BLOOD THINNERS N SKIN PROBLEMS N GASTROINTESTINAL DISORDER N PERIPHERAL VASCULAR DISEASE N MUSCLE,JOINT OR BONE PROBLEMS Y GASTROINTESTINAL BLEEDING N BLOOD CLOTS N ASTHMA N CATARACTS N ERECTILE DYSFUNCTION N VARICOSITIES N GI PROBLEMS N Low Testosterone N INFERTILITY N AIDS/HIV N LIVER DISEASE N MALE HYPOGONADISM N HYPERTENSION Y Deficiency N ANXIETY DISORDER N BLOOD TRANSFUSION N ANEMIA/BLOOD DISORDER N CHRONIC EAR INFECTIONS N BRONCHITIS N TUBERCULOSIS N GLAUCOMA N FOOT PROBLEM N DIVERTICULITIS N SLEEP APNEA N CHICKENPOX N INFECTIOUS DISEASE N PROSTATE N HEART ARRHYTHMIA N INSOMNIA N HIGH CHOLESTEROL / HYPERLIPIDEMIA Y EYE PROBLEMS N HYPERTHYROIDISM N NEUROLOGICAL PROBLEMS N EDEMA N CHRONIC PAIN SYNDROME N HYPOTHYROIDISM N CONSTIPATION N CAROTID BLOCKAGE N BACK / NECK PROBLEMS Y HAVE YOU BEEN HOSPITALIZED OR SEEN IN [place] [facility] IN THE PAST YEAR ? N ATHEROSCLEROSIS N BREAST PROBLEMS N DIALYSIS N ECZEMA N OSTEOPOROSIS Y ARTHRITIS N NO SIGNIFICANT PAST MEDICAL HISTORY N APPENDICITIS N DIABETES, TYPE N BAD TEETH N ENT N HEARTBURN / REFLUX N AUTISM SPECTRUM DISORDER (ASD) N HEPATITIS / LIVER DISEASE N PULMONARY DISEASE N GOUT N SLEEP DISORDER N ALZHEIMER'S DISEASE N Brain Problems N DEMENTIA N HERPES N SEIZURES/EPILEPSY N HEADACHES/MIGRAINES N VASCULAR DISEASE N PACEMAKER N Blood Disorder N DIZZINESS N HEART DISEASE/HEART PROBLEMS N KIDNEY DISEASE N MULTIPLE SCLEROSIS N CANCER: SPECIFY N CARDIAC ARRHYTHMIA N ANESTHESIA COMPLICATIONS N ATRIAL FIBRILLATION N Gall Stones N PULMONARY EMBOLISM N AUTOIMMUNE DISEASE N Gynecological HistoryNo gynecological history recorded. Obstetrics History GPAL:G 0 P 0 0 0 0 Immunizations Vaccine Type Date Status Note Provider Nam e and Address Organization Details Recorded Time COVID-19, mRNA, LNP-S, PF, 10 mcg/0.2 mL dose, scott-sucrose 2 completed Not Available [facility] 06/05/2023 08:46:00 COVID-19, mRNA, LNP-S, PF, 10 mcg/0.2 mL dose, scott-sucrose 2 completed Not Available [facility] 06/05/2023 08:46:00 zoster recombinant 2 completed Not Available [facility] 06/05/2023 08:46:00 Influenza, high-dose, quadrivalent, PF 1 completed Not Available [facility] 06/05/2023 08:46:00 COVID-19, mRNA, LNP-S, PF, 30 mcg/0.3 mL dose 1 completed Not Available [facility] 06/05/2023 08:46:00 COVID-19, mRNA, LNP-S, PF, 30 mcg/0.3 mL dose 1 completed Not Available [facility] 06/05/2023 08:46:00 Influenza, high-dose, trivalent, PF 7 completed Not Available [facility] 06/05/2023 08:46:01 pneumococcal polysaccharide PPV23 7 completed Not Available [facility] 06/05/2023 08:46:01 COVID-19, mRNA, LNP-S, PF, 30 mcg/0.3 mL dose 1 completed Not Available [facility] 06/05/2023 08:46:00 influenza, unspecified formulation 5 completed Not Available [facility] 06/05/2023 08:46:01 Pneumococcal conjugate PCV 13 7 completed Not Available [facility] 06/05/2023 08:46:01 Influenza, high-dose, quadrivalent, PF 3 completed JOIE Pineda, [place] - [facility] 09/04/2023 12:20:01 Past Encounters Encounter ID Performer Location Encounter Start Date Encounter Closed Date Diagnosis/Indication Diagnosis SNOMED-CT Code Diagnosis ICD10 Code Diagnosis Note [id number] [facility] [place] [address] [place] [address] [address], [place] [address] 01/25/2021 00:00:00 01/25/2021 22:07:03 [id number] [facility] [place] [address] [place] [address] [place] [address] 08/02/2021 00:00:00 08/02/2021 22:52:03 [id number] [facility] [place] [address] [place] [address] [address] 01/31/2022 00:00:00 02/25/2022 11:04:10 [id number] [facility] [place] [address] [facility] [place] [address] 08/08/2022 00:00:00 09/10/2022 15:10:58 [id number] Tyrell Mathew MD [facility] Internal [facility] [place] [address] [place] [address] [place] [address] 02/08/2023 09:56:12 02/08/2023 10:48:19 Essential hypertension 76173795 I10 Long-term drug therapy 636844744 Z79.899 Dyslipidemia 912102674 E 78.5 Vitamin D below reference range 484976180 E55.9 [id number] [address] [facility] Internal [facility] [place] [address] [place] [address] [place] [address] 06/19/2023 09:49:13 06/19/2023 10:50:27 Dyslipidemia 917674860 E78.5 Vitamin D below reference range 748724106 E55.9 Essential hypertension 64668671 I10 Osteopenia 437998188 M85 .80 [id number] Tyrell Mathew MD [facility] Internal [facility] [place] [address] [place] [address] [place] [address] 09/13/2023 10:55:30 11/09/2023 12:57:13 Health Concerns Section Related Observation LastModified by Organization Detai ls LastModified Time None Recorded Concern Status LastModified by Organization Details LastModified Time None Recorded Advance Directives Directive Y: Payers Encounter Date Sequence Insurance Name Policy Number Policy Hi Covered Member ID Hi Member ID Guarantor Name 02/08/2023 1 [place] Audelia [place] Babic [id number] Audelia E Babic 02/08/2023 2 [employer] - [employer] (MEDICARE SUPPLEMENT) PLAN G Audelia E Babic [id number] Audelia E Babic 06/19/2023 1 [place] Audelia E Babic [id number] Audelia E Babic 06/19/2023 2 [employer] - [employer] (MEDICARE SUPPLEMENT) PLAN G Audelia E Babic [id number] Audelia E Babic 09/13/2023 1 [place] Audelia [place] Vibha [id number] Audelia [place] Vibha 09/13/2023 2 [employer] - [employer] (MEDICARE SUPPLEMENT) PLAN G Audelia E Vibha [id number] Audelia [place] Vibha Notes Date Note Type Note Provider Name and Address Organization Details Recorded Time 3 text/html Osteoarthritis seems to be doing fineLow vitamin-D level taking supplementation no new bone painHypertension no chest pain no headache or dizzinessDyslipidemia no side effects from her statin Tyrell Mathew MD [address], [address], [place], [address], [facility] 02/11/2023 11:36:28 3 text/html Osteoarthritis seems to be doing fineLow vitamin-D level taking supplementation no new bone painHypertension no chest pain no headache or dizzinessDyslipidemia no side effects from her statin Tyrell Mathew MD [address], [place], [address], [facility] 07/01/2023 22:00:32 OBGyn Episode No OBEpisode recorded.
--- OUTSIDE RECORDS SUMMARY | 2024-12-31 10:33 | XMS_ITS | Clinical Summary ---
Author Organization [facility] Address [address], [place] [address] Phone Care Team Providers Care Date Puller Name Role Phone Tyrell Mathew MD Primary Care Provider [phone] Allergies Active Allergy Reactions Criticality Noted Date Comments Aspirin Hives,Rash High 02/16/2019 Medications Medication Sig Dispensed Refills Start Date End Date Status HYDROcodone-acetamin ophen (NORCO) 5-325 MG per tablet Take 1 tablet by mouth every 8 (eight) hours if needed. Active NIFEdipine CC (ADALAT CC) 30 MG 24 hr tablet Take 30 mg by mouth 1 (one) time each day before breakfast. Active ACCU-CHEK SMARTVIEW test strip USE TO TEST BLOOD GLUCOSE BID 6 03/11/2019 Active ACCU-CHEK FASTCLIX LANCETS misc USE TO TEST BLOOD GLUCOSE BID 6 03/11/2019 Active cholecalciferol, vitamin D3, 5,000 Units tablet tablet Vitamin D 5,000 unit tablet Take by oral route. Active amLODIPine (NORVASC) 5 MG tablet amlodipine 5 mg tablet Active metFORMIN (GLUCOPHAGE) 1000 MG tablet metformin 1,000 mg tablet TAKE 1 2 (ONE HALF) TABLET BY MOUTH TWICE DAILY Active nebivolol (Bystolic) 5 MG tablet Bystolic 5 mg tablet TAKE 1 2 (ONE HALF) TABLET BY MOUTH ONCE DAILY Active Lancets Misc. (ACCU-CHEK FASTCLIX LANCET) kit U TO TEST BS BID 04/21/2020 Active NARCAN 4 MG/0.1ML liquid USE DIRECTED NEEDED FOR 1 DAY 03/15/2020 Active cephalexin (KEFLEX) 250 MG capsule TAKE 1 CAPSULE BY MOUTH ONCE DAILY AT BEDTIME 09/20/2020 Active atorvastatin (LIPITOR) 40 MG tablet 05/30/2022 Active B Complex Vitamins (Vitamin-B complex) 25' HALF TABLET Active Active Problems Problem Noted Date Diagnosed Date Pernicious anemia 12/27/2021 Dyslipidemia 01/25/2021 Monoclonal gammopathy of uncertain significance 09/24/2019 Neuropathy 03/31/2019 Type 2 diabetes mellitus 03/31/2019 Urinary tract infectious disease 03/31/2019 Essential hypertension 12/30/2017 Serum vitamin B12 low 05/03/2017 Chronic kidney disease Hypertensive chronic kidney disease 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 Rheumatoid arthritis Gout Hyperlipidemia Immunizations Name Administration Dates Next Due Influenza Split High Dose Pr eservative Free IM 08/15/2017,08/15/2017 Influenza, Injectable, Quadrivalent 08/16/2020,1 ,11/19/2018 Influenza, Quadrivalent 09/06/2021 Influenza, Unspecified 08/12/2018,08/12/2018 Pfizer Sars-cov-2 Vaccination 08/09/2021, 021,01/04/2021 Pneumococcal Conjugate 11/19/2018 Pneumococcal Conjugate 13-Valent 12/05/2016,11/13 Pneumococcal Polysaccharide 08/15/2017, 7 Zoster Recombinant 06/12/2021,04/12/2021 Family History Medical History Relation Comments Hypertension Father Colon cancer Mother Kidney disease Neg Hx Kidney stone Neg Hx Relation Status Comments Father Mother Social History Tobacco Use Types Packs/Day Years Used Date Smoking Tobacco: Former Cigarettes 1 30 1 975 - 2005 Smokeless Tobacco: Never Alcohol Use Standard Drinks/Week Comments Yes 0 (1 standard drink = 0.6 oz pur e alcohol) 1 beer a month AUDIT-C Answer Date Recorded Frequency of Alcohol Consumption Monthly or less 02/16/2019 Average Number of Drinks Not on file 019 Frequency of Binge Drinking Not on file 05/2019 Sex and Gender Information Value Date Recorded Sex Assigned at Male 06/15/2021 7:15 AM MDT Gender Identity Male 06/15/2021 7:15 AM MDT Sexual Orientation Straight 06/15/2021 7: 15 AM MDT Last Filed Vital Signs Vital Sign Reading Time Taken Comments Blood Pressure 136/82 07/03/2022 9:04 AM CDT Pulse - - Temperature 36.3 C (97.4 F) 07/03/2022 9:04 AM CDT Respiratory Rate 18 07/03/2022 9:04 AM CDT Oxygen Saturation - - Inhaled Oxygen Concentration - - Weight 86.2 kg (190 lb) 07/03/2022 9:04 AM CDT Height 188 cm (6' 2 ) 07/03/2022 9:04 AM CDT Body Mass Index 24.39 07/03/2022 9:04 AM CDT Plan of Treatment Health Maintenance Due Date Last Done Comments Diabetic Foot Exam 04/14/1962 Ophthalmology Exam 04/14/1962 COVID-19 Vaccine (2023-2 5 season) 2024 08/09/2021, 01/27/2021, 01/04/2021 Influenza Vaccine (#1) 2024 08/12/2018, 2017 Pneumococcal PPSV23/PCV13 65 + Years / High and Highest Risk Completed 08/15/2017, 08/15/2017, 12/05/2016, Additional history exists Advance Directives For more information, please contact: [phone] (Available ) Documents on File Type Date Recorded Patient Secretary Of State Expl anation Power of Die Drawing Checker 06/27/2021 2:11 PM Kevin [id number] Care Teams Date Puller Relationship Specialty Start Date End Date Tyrell Mathew MD [address] [facility] [address] [place] [address] PCP - General Family Medicine 02/16/19
--- OUTSIDE RECORDS SUMMARY | 2024-12-31 10:33 | XMS_ITS | Clinical Summary ---
Author Organization [facility] Address [address] [facility] [place] [address] Care Team Providers Care Soup Mixer Name Role Phone Unavailable Primary Care Provider Unavailabl e Source Comments [facility],non-owned Affiliates and Associated Physician Practices is amultiple site organization consisting of ambulatory clinics and hospital sitesin [place], [place], [place] and [place]. This disclosure is being madepursuant to the Care Everywhere program and may not contain all information available regarding this patient. Last updated 18.[facility] Social History Tobacco Use Types Packs/Day Years Used Date Smoking Tobacco: Never Assessed Sex and Gender Information Value Date Recorded Sex Assigned at Not on file Gender Identity Not on file Sexual Orientation Not on file Plan of Treatment Health Maintenance Due Date Last Done Comments BONE DENSITY TESTING 1950 COLOGUARD (AGES 45-75) - COL ON CA SCREENING 1952 COLON MONITORING 1952 COLONOSCOPY - COLON CA SCREENING 1952 CT COLONOGRAPHY - COLON CA SCREENING 1950 Colorectal Cancer Screening 1950 FIT - COLON CA SCREENING 1952 FLEX SIG - COLON CA SCREENING 1952 LIPID TESTING 1950 MAMMOGRAM 1950 MEDICARE AWV 12 MONTHS 1952 HEPATITIS C SCREENING 04/20/1970 DTAP/TDAP/TD VACCINES (1 - Tdap) 1971 PNEUMOCOCCAL VACCINE 50+ (1 of 1 - PCV) 2002 ZOSTER VACCINE (1 of 2) 2002 COVID-19 VACCINE ( - 2023-2 5 season) 2024 INFLUENZA VACCINE (#1) 2024 DEPRESSION SCREENING 11/12/2024 Respiratory Syncytial Virus (RSV) Vaccine Pt: or over 60 yrs (1 - 1-dose 75+ series) 2027 HEPATITIS B VACCINE Aged Out No longe r eligible based on patient's age to complete this topic HIB VACCINE Aged Out No longer eligi ble based on patient's age to complete this topic HPV VACCINE Aged Out No longer eligi ble based on patient's age to complete this topic MENINGOCOCCAL (Group B) VACCINE Aged Out No longer eligible based on patient's age to complete this topic MENINGOCOCCAL VACCINE Aged Out No fabian michael eligible based on patient's age to complete this topic
--- OUTSIDE RECORDS SUMMARY | 2024-12-31 10:33 | XMS_ITS | Continuity of Care Document ---
Author Organization [facility] Address [address] [place] [address] Phone Care Team Providers Care Health Concierge Name Role Phone Sneed OD, Mario Unavailable Unavailable Procedures Procedure Date Office/outpatient Visit, Est Office/outpatient Visit, Est Office/outpatient Visit, [facility] Advance Directives Directive Yes / No Effective Date File Name No Information Encounters Encounter Description Practice Location Reason(s) For Visit Diagnoses Date Provider Providers Copied on Encounter [place] [facility] [place] [address] [place] [address] [address], [place], [place], [id number], tel:[phone] [facility] No Information Aug-0 9-200 7 Sneed OD Mario. [address], [place], [place], [facility], . tel:[phone] [place] [facility] [place] [address] [place] [address] [address], [place], [place], [address], [place] tel:[phone] [facility] No Information Aug-0 2-200 7 Sneed OD Mario. [address], [place], [place], [facility], . tel:[phone] Office/outpat ient Visit, [facility], [address], [place], [place], [address], tel:[phone] [facility] No Information Dustin-3 1-200 7 Sneed OD Mario. [address] , [address], [place], [address], [place]. tel:[phone] Family History Family Member Type Diagnosis Age At Onset No Information Payers Payer name Insurance type Covered constitution party ID Authoriza tion(s) No Information Social History Type Description Quantity Date Captured Comments Sex Male Smoking Status No Information Chief Complaint And Reason For Visit No Information Reason For Referral Reason For Referral No Information History Of Present Illness Encounter Date Complaint History Of Prese nt Illness No Information Functional Status Date Functional Assessmen t No Information Instructions Date Instruction Additional Infor mation No Information Assessments Type Assessment Date No Information Patient Care Teams Name Effective Dates (start - stop) Status Members No Information
--- OUTSIDE RECORDS SUMMARY | 2024-12-31 10:33 | XMS_ITS | Encounter Summary ---
Author Organization [facility] Address [address] [facility] [place] [address] Care Team Providers Care Veneer Puller Name Role Phone Unavailable Primary Care Provider Unavailabl e Encounter Details Date Type Department Care Team (Late st Contact Info) Description 06/25/2020 Lab Requisition [facility] [address] [facility] [place] [address] Lester Noyola MD [address] [place] [address] Social History Tobacco Use Types Packs/Day Years Used Date Smoking Tobacco: Never Assessed Sex and Gender Information Value Date Recorded Sex Assigned at Not on file Gender Identity Not on file Sexual Orientation Not on file documented as of this encounter Plan of Treatment Not on file documented as of this encounter Procedures Procedure Name Priority Date/Time Associated Diagnosis Comments DERMATOPATHOLOGY Routine 06/23/2020 12:0 0 AM CDT documented in this encounter Results * DERMATOPATHOLOGY (06/23/2020 12:00 AM CDT) Case Report Dermatopathology Report Case: [id number] Authorizing Provider: Lester Noyola MD Collected: 06/23/2020 12:00 AM Ordering Location: [facility] Received: 06/25/2020 02:22 PM Pathologist: Anay Medeiros MD Specimen: Skin, left middle finger 0 3:42 PM CDT DERMATOPATHOLOGY LABORATORY Final Diagnosis Specimen A. 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 The specimen consists of a shave biopsy measuring 6x6x3 mm. Jar 0. 0 3:42 PM CDT DERMATOPATHOLOGY LABORATORY Microscopic Description Specimen A. SKIN, left middle finger: The epidermis is acanthotic and hyperkeratotic and surrounds a dermis with thick collagen bundles oriented predominantly in a vertical fashion. There are scattered stellate fibroblasts. COMMENT: Included in this group are: acquired digital fibrokeratoma, acquired periungual fibrokeratoma, garlic clove fibroma, and subungual/periungua l fibromas of tuberous sclerosis. 0 3:42 PM CDT DERMATOPATHOLOGY LABORATORY Disclaimer An external and internal positive and negative controls are appropriate for the histochemical, immunohistochemical and immunofluorescence stain(s) in this case (if any), except where stated explicitly. The performance characteristics of the stain(s) cited in this report were developed and its performance characteristic determined by the Dermatopathology Laboratory at [facility], directed by Dr. Mehrdad Mendiola. These tests need not be, and therefore are not, approved by the [place] Food and Drug Administration. The tests are used for clinical purposes. Billing Codes Specimen Charges Stain Charges 14206 1 0 3:42 PM CDT DERMATOPATHOLOGY LABORATORY Embedded Images 0 3:42 PM CDT DERMATOPATHOLOGY LABORATORY Pathology/Cytolog y TISSUE SPECIMEN FROM SKIN / Unknown 06/23/2020 06/25/2020 2:22 PM CDT Lester Noyola MD LAB - PATHOLOGY/CYTO LOGY ORDERABLES DERMATOPATHOLOGY LABORATORY [facility] - Department of Dermatology [facility] [place]/[address] [phone] documented in this encounter Visit Diagnoses Not on filedocumented in this encounter
--- OUTSIDE RECORDS SUMMARY | 2024-12-31 10:33 | XMS_ITS | Patient Health Summary ---
Author Organization [facility] Address [address] [place] [address] Care Team Providers Care Hotel Maintenance Technician Name Role Phone Unavailable Primary Care Provider Unavailabl e Note from [facility],non-owned Affiliates and Associated Physician Practices is amultiple site organization consisting of ambulatory clinics and hospital sitesin [place], [place], [place] and [place]. This disclosure is being madepursuant to the Care Everywhere program and may not contain all information available regarding this patient. Last updated 18.[facility] Social History Tobacco Use Types Packs/Day Years Used Date Smoking Tobacco: Never Assessed Sex and Gender Information Value Date Recorded Sex Assigned at Not on file Gender Identity Not on file Sexual Orientation Not on file Procedures * DERMATOPATHOLOGY(Performed 06/23/2020) Results * DERMATOPATHOLOGY (06/23/2020 12:00 AM CDT) Case Report Dermatopathology Report Case: [id number] Authorizing Provider: Lester Noyola MD Collected: 06/23/2020 12:00 AM Ordering Location: [facility] Lab Received: 06/25/2020 02:22 PM [...] shave biopsy measuring 6x6x3 mm. Jar 0. 08/17/202 0 3:42 PM CDT DERMATOPATHOLOGY LABORATORY Microscopic [...] characteristic determined by the Dermatopathology Laboratory at [facility], directed by Dr. Mehrdad Mendiola. These tests need not be, and therefore are not, approved by the [place] Food and Drug Administration. The tests are used for clinical purposes. Billing Codes Specimen Charges Stain Charges 05060 1 0 3:42 PM CDT DERMATOPATHOLOGY LABORATORY Embedded Images 0 3:42 PM CDT DERMATOPATHOLOGY LABORATORY Pathology/Cytolog y TISSUE SPECIMEN FROM SKIN / Unknown 06/23/2020 06/25/2020 2:22 PM CDT Lester Noyola MD LAB - PATHOLOGY/CYTO LOGY ORDERABLES DERMATOPATHOLOGY LABORATORY [facility] - Department of Dermatology [facility]/[address] [phone]
--- OUTSIDE RECORDS SUMMARY | 2024-12-31 10:33 | XMS_ITS | Clinical Summary ---
Author Organization [facility] Address [address] [place] [address] Care Team Providers Care Medical Sales Representative Name Role Phone Unavailable Primary Care Provider Unavailabl e Social History Tobacco Use Types Packs/Day Years Used Date Smoking Tobacco: Never Assessed Comments Unknown Sex and Gender Information Value Date Recorded Sex Assigned at Not on file Legal Sex Female 4:13 PM CDT Gender Identity Not on file Sexual Orientation Not on file Plan of Treatment Health Maintenance Due Date Last Done Comments Colorectal Cancer Screening Colonoscopy (10 Years) 1952 Hepatitis C 1970 DTaP, Tdap and Td Vaccines ( 1 - Tdap) 1971 Mammogram Screening 1992 Zoster Vaccines (1 of 2) 2002 Dexa Scan (General) 2017 Pneumococcal Vaccine: 65+ Ye ars (1 of 1 - PCV) 2017 COVID-19 Vaccine (2023-2 5 season) 2024 Influenza Adult (#1) 2024 RSV Immunization or 60+ Years (1 - 1-dose 75+ series) 2027 Meningococcal B Vaccine Aged Out No l onger eligible based on patient's age to complete this topic Meningococcal Vaccine Aged Out No fabian michael eligible based on patient's age to complete this topic RSV Immunizations Under 20 Months Aged Out No longer eligible based on patient's age to complete this topic
--- OUTSIDE RECORDS SUMMARY | 2024-12-31 10:33 | XMS_ITS | Referral Summary ---
Author Organization [facility] Address [address] [place] [address] Care Team Providers Care Brewery Pumper Name Role Phone Unavailable Primary Care Provider Unavailabl e Source Comments [facility],non-owned Affiliates and Associated Physician Practices is amultiple site organization consisting of ambulatory clinics and hospital sitesin [place], [place], [place] and [place]. This disclosure is being madepursuant to the Care Everywhere program and may not contain all information available regarding this patient. Last updated 18.[facility] Ratio Social History Tobacco Use Types Packs/Day Years Used Date Smoking Tobacco: Never Assessed Sex and Gender Information Value Date Recorded Sex Assigned at Not on file Gender Identity Not on file Sexual Orientation Not on file Plan of Treatment Not on file
== END 2024-12-03 10:22 ==
LOC: ANHIMG 12-31 10:21
PROVIDERS: PCP Family Medicine; Visit Provider Nurse Practitioner
DX: M85.89 Other specified disorders of bone density and structure, multiple sites (principal); Z78.0 Asymptomatic menopausal state
CPT/HCPCS: 77080

== ENCOUNTER 2024-12-09 13:28 | Outpatient (CLI) | payer MEDICARE, SELFPAY ==
--- NOTE | ~2024-12-09 | MM_ITS ---
EXAMINATION: MM screening garrett BI w ingrid HISTORY: Screening TECHNIQUE: Craniocaudal and mediolateral oblique 3-D tomosynthesis images were obtained and synthetic 2-D images were generated. CAD analysis was submitted and interpreted. COMPARISON: Comparison to multiple prior studies sequentially, with oldest reviewed study dated 03/2019. BREAST PARENCHYMAL COMPOSITION: Dense: The breasts are heterogeneously dense, which may obscure small masses FINDINGS: There is no evidence of suspicious mass, calcification, or architectural distortion to sugg est malignancy in either breast. There has been no suspicious interval change. IMPRESSION: 1. No mammographic evidence of malignancy. 2. Recommend routine screening mammography in one year. BI-RADS Category 1: Negative Reviewed, dictated and finalized at location A. MAINTAINER
== END 2024-12-09 13:29 | disposition home or self-care (01) ==
LOC: MICIMG 13:29
PROVIDERS: PCP Family Medicine; Visit Provider Nurse Practitioner
DX: Z12.31 Encounter for screening mammogram for malignant neoplasm of breast (principal)
CPT/HCPCS: 77063; 77067

== ENCOUNTER 2024-12-25 10:21 | Outpatient (CLI) | payer MEDICARE, SELFPAY ==
--- NOTE | ~2024-12-25 | XR_ITS ---
Left Knee Technique: AP, lateral, and sunrise views were obtained. Clinical History: Patellofemoral disorder Findings: No fracture or dislocation is seen. Osseous alignment is anatomic. Joint spaces are preserv ed, with mild degenerative spurring about the knee. Soft tissues are unremarkable. No joint effusion is seen. Impression: Minimal degenerative change. Reviewed, dictated and finalized at location . CTOR OF MEDICAL REVIEW Impression: Minimal degenerative change.
== END 2024-12-25 10:22 | disposition home or self-care (01) ==
LOC: GOSHIMG 10:23
PROVIDERS: PCP Family Medicine; Visit Provider Family Medicine
DX: M22.2X2 Patellofemoral disorders, left knee (principal)
CPT/HCPCS: 73562

== ENCOUNTER 2025-02-10 10:00 | Outpatient (RCR) | payer MEDICARE, SELFPAY ==
--- NOTE | 2025-01-06 15:15 | OPREHPOC ---
Outpatient Therapy Plan of Care This is a Multidisciplinary Plan of Care that may contain components documented by all disciplines (PT, OT, and ST.) PT Problem 1 PT Problem #1 Knowledge Deficit PT Goal 1 Goal / Goal Update [place] with HEP Target Visit 4 PT Goal 2 Goal / Goal Update Report no pain greater than 2/10 consistently for 2 weeks Target Visit 8 PT Problem 2 PT Problem #2 Impaired Strength PT Goal 1 Goal / Goal Update 1. Improve horace hip flexion strength to 4+/5 to improve foot clearance 2. Improve horace hip abduction strength to 4+/5 to improve lateral stability during gait and ADL performance Target Visit 8 PT Problem 3 PT Problem #3 Impaired Range of Motion PT Goal 1 Goal / Goal Update 1. Improve horace hip abduction ROM to 40 degrees to improve hip capsular mobilization 2. Improve horace hamstring 90/90 to -25 degrees or better to reduce pelvic pull and knee pull in posterior aspect Target Visit 8
--- NOTE | 2025-01-06 15:15 | PTOPEVAL1 ---
Assessment and note entered by Farhan Canales, PT Evaluation Information Assessment Status Evaluation Onset June 2024 Subjective Information Reports that she has been using lidocaine, Tylenol , and a patellar brace for pain. She has had most of her issues going up and down stairs and she lives in a 2 story home. She does go on frequent walks and noted increased pain with ambulation. She is also having issues getting up from low surfaces or extending her knee when relaxing. She has more pain in the AM and reports that she does hear popping in the hip. Reported Pain Level Pain Score 1: Self Report Assessment PT Clinical Summary Patient presents with signs and symptoms consistent with patellofemoral joint dysfunction. Examination of radiographs indicates decent joint space but reflects medial patellar drift. Patient has limited hip mobility and stability and will benefit from skilled therapy to address these deficits. Plan of Care Interventions Gait Training,Manual Therapy,Neuro Re-education, Therapeutic Activities,Therapeutic Exercise PT Services Indicated Yes Treatment Frequency and 1-2x/week for 8 visits Duration These treatments will address the objective and functional deficits as defined above. The patient will be advanced safely and appropriately in order for the patient to progress towards his/her prior level of function. Additional exercises will be introduced and as well as a comprehensive home exercise program upon discharge, if needed, ?to ensure carryover of functional gains achieved in the clinic. This treatment plan has been reviewed and agreement upon by the patient.
--- NOTE | 2025-02-06 15:38 | PCPTNOTE ---
Patient canceled appointment this date due to schedule conflict.
--- NOTE | 2025-02-10 11:07 | PTOPDC ---
Assessment and note entered by Farhan Canales, PT Evaluation Information Assessment Status Discharge Onset June 2024 Subjective Information Reports that overall she is not feeling as lot of subjective improvement at this point. Feels that she is still feeling very stiff in the knee and struggling with stairs. She has altered some of her exercises to accommodate. Reports that she has noted decreased clicking of the left hip. Patient is requesting discharge to [facility] at this time. Reported Pain Level Pain Score 1: Self Report Assessment PT Clinical Summary Patient has seen some improvement in both ROM and strengthening. I feel she has been consistent with HEP to promote improved joint motion. We discussed the potential of trying a cortisone injection to reduce inflammation with routine of HEP to assess reaction as she has had positive pain relief with prednisone in the past. Patient to be discharged to [facility] Plan of Care PT Services Indicated Yes
== END 2025-02-11 09:32 | disposition home or self-care (01) ==
LOC: ANHGOSHPT 10:00
PROVIDERS: PCP Family Medicine; Visit Provider Family Medicine
DX: M22.2X2 Patellofemoral disorders, left knee (principal)
CPT/HCPCS: 97016; 97110; 97140; 97161; 97530

== ENCOUNTER 2025-05-04 08:14 | Outpatient (CLI) | payer MEDICARE, SELFPAY ==
[2025-05-04 12:44] LABS: Basophils Percent Auto 0.9 % (0.2-1.2); Eosinophils Absolute Auto 0.1 K/mm3 (0-0.3); Eosinophils Percent Auto 1.9 % (0-4.4); Hemoglobin 11.3 g/dL (12.0-15.0); Immature Granulocyte Absolute 0.01 K/mm3 (0.00-0.031); Immature Granulocyte Percent A 0.2 % (0-0.5); Lymphocytes Absolute Auto 1.42 K/mm3 (0.9-3.2); Lymphocytes Percent Auto 33.1 % (18.3-44.2); Mean Corpuscular HGB Conc 31.4 g/dl (32-36); Mean Corpuscular Hemoglobin 30.2 pg (26-34); Mean Corpuscular Volume 96.3 fl (80-100); Mean Platelet Volume 9.9 fl (7.4-10.4); Monocytes Absolute Auto 0.4 K/mm3 (0.1-0.6); Monocytes Percent Auto 8.9 % (2.6-8.5); Neutrophils Absolute Auto 2.4 K/mm3 (1.3-6.7); Platelet Count Result 203 k/mm3 (150-375); Red Blood Count 3.74 M/mm3 (4.2-5.4); White Blood Count 4.3 K/mm3 (4.5-10.0)
[2025-05-04 12:53] LABS: Alanine Aminotransferase 17 U/L (6-35); Albumin Level 4.3 g/dL (3.5-5.1); Alkaline Phosphatase 39 U/L (38-126); Anion Gap 6 mmol/L (4-12); Aspartate Amino Transferase 47 U/L (14-36); Bilirubin,Total 0.8 mg/dL (0.2-1.3); Blood Urea Nitrogen 15 mg/dL (7-17); Calcium 9.8 mg/dL (8.4-10.2); Carbon Dioxide 30 mmol/L (22-30); Chloride 104 mmol/L (98-107); Cholesterol 177 mg/dL (0-200); Estimated Glomerular Filt Rate > 60; Glucose 88 mg/dL (65-110); HDL Direct 105 mg/dL; Potassium 4.2 mmol/L (3.4-5.0); Sodium 140 mmol/L (137-145); Triglycerides 40 mg/dL (<150)
[2025-05-04 13:04] LABS: LDL Cholesterol Direct 38 mg/dL
== END 2025-05-04 08:15 | disposition home or self-care (01) ==
PROVIDERS: PCP Family Medicine; Visit Provider Family Medicine
DX: D64.9 Anemia, unspecified (principal); E78.2 Mixed hyperlipidemia
CPT/HCPCS: 36415; 80053; 80061; 82728; 85025